=== PATIENT | male | born 2000 | race Caucasian/White ===

== ENCOUNTER 2024-03-12 23:38 | Emergency (ER) | payer SELFPAY ==
--- NOTE | ~2024-03-12 | CT_ITS ---
EXAMINATION: CT HEAD WITHOUT CONTRAST CLINICAL INFORMATION: Headache. COMPARISON: None available. TECHNIQUE: Contiguous axial imaging was performed from the skull base to vertex without intravenous administration of contrast. This CT examination was performed using dose optimization techniques as appropriate, variously including the following: *Automated exposure control *Adjustment of mA and/or kV according to patient size (this includes techniques or standardized protocols for targeted exams where dose is matched to indication/reason for exam; i.e. extremities or head) *Use of iterative reconstruction technique DLP: 757 mGy-cm FINDINGS: No intracranial hemorrhage, tumors or acute infarcts identified. The ventricles and sulci are normal in size and configuration. No focal parenchymal lesions of the brain. Normal appearance of the orbits and globes. No extra cranial soft tissue inflammatory changes. No significant opacification of the visualized paranasal sinuses, mastoid air cells and middle ear cavities. CT/CT head/brain wo IV con IMPRESSION: Normal unenhanced CT of the head. Electronically signed by: Kvng Stewart MD 03/13/2024 02:03 AM EDT
[2024-03-12 23:45] VITALS: BP 129/82; PULSE 85; RESP 18; TEMP 36.9; O2SAT 97; BMI 40.7
[2024-03-13 00:15] LABS: Basophils Absolute Auto 0.1 X10*3/uL (0.0-0.2); Basophils Percent Auto 0.9 % (0-2); Eosinophils Absolute Auto 0.2 X10*3/uL (0.0-0.4); Eosinophils Percent Auto 2.4 % (0-4); Hematocrit 44.5 % (42.0-52.0); Hemoglobin 14.1 g/dl (14.0-18.0); Imm Gran Abs Auto 0.04 X10*3/uL (0.00-0.03); Imm Gran Pct Auto 0.5 % (0.0-0.4); Lymphocytes Absolute Auto 2.9 X10*3/uL (1.2-4.9); Lymphocytes Percent Auto 33.8 % (20-40); MANUAL DIFF FLAG NO; Mean Corpuscular HGB Conc 31.7 g/dl (31.0-36.0); Mean Corpuscular Volume 82.1 fL (80.0-98.0); Mean Platelet Volume 8.6 fL (9.4-12.4); Monocytes Absolute Auto 0.7 X10*3/uL (0.1-1.2); Monocytes Percent Auto 8.3 % (2-11); Neutrophils Absolute Auto 4.6 x10*3/uL (2.0-8.3); Neutrophils Percent Auto 54.1 % (45-73); Platelet Count 405 X10*3/uL (160-400); Red Blood Count 5.42 X10*6/uL (4.60-5.80); Red Cell Distribution Width 13.7 % (11.0-16.0); White Blood Count 8.5 X10*3/uL (4.8-10.8)
[2024-03-13 00:32] LABS: Alanine Aminotransferase 49 U/L (0-40); Albumin Level 4.4 g/dL (3.5-5.0); Alkaline Phosphatase 70 U/L (39-117); Anion Gap 15 (12-20); Aspartate Amino Transferase 24 U/L (5-37); Bilirubin Total 0.3 mg/dL (0.0-1.0); Blood Urea Nitrogen 10 mg/dL (9-16); Calcium 10.2 mg/dL (8.4-10.2); Carbon Dioxide 25 mmol/L (22-29); Chloride 107 mmol/L (96-108); Estimated Glomerular Filt Rate > 60; Glucose Random 222 mg/dL (60-115); Sodium 142 mmol/L (135-145); Total Protein 7.9 g/dL (6.5-8.0)
--- NOTE | 2024-03-13 00:37 | ED.HA ---
HPI - Headache General Chief Complaint: Headache Stated Complaint: Seizures, Migraines Time Seen by Provider: 03/13/24 00:22 Source: patient, family and budget clerk Mode of arrival: ambulatory Limitations: other (poor historians) History of Present Illness ED Provider: SALLY WILSON Narrative: 23 yo male here with mom both are very poor historians - they report a PMH of seizures, DM, developmental delay he has been here for 1 month after his caregiver whom mom left him with. He told mom he had a headache on top of his head and his head felt hot so she brought him in. He states it is 5/10. No nausea or vomiting but the lights hurt it. He notes he was at rest getting ready for bed. He had a normal day today. He is not on blood thinners. MD elicited complaint: headache Onset (ago): hour(s) (1) Onset description: gradually Location: other (dome) Severity: moderate Quality & Timing: aching Exacerbating factors: light Relieving factors: nothing Context: occurred at rest Associated symptoms: none Treatments prior to arrival: none Related Data Allergies Allergy/AdvReac Type Severity Reaction Status Date / Time Unable to Assess Allergy Verified 03/12/24 23:57 Review of Systems Review of Systems: Constitutional : No Fever, No Chills, No Fatigue ENT/Mouth : No sore throat, No Rhinorrhea Eyes: No Eye Pain, No Swelling, No Redness Cardiovascular : No Chest Pain, No SOB, No Dyspnea on Exertion Respiratory : No Cough, No Sputum Gastrointestinal : No Nausea, No Vomiting, No Diarrhea, No abdominal Pain Genitourinary : No Dysuria, No Urinary Frequency, No Hematuria, Musculoskeletal : No joint pain, No Myalgias, No Joint Swelling Skin : No Skin Lesions, No rash Neuro : No Weakness, No Numbness, No Dizziness, positive Headache All other systems reviewed and are negative [facility], [facility] Past Medical History Attestation statement: The following information was validated with the patient. Medical History Cognitive developmental delay Diabetes Seizures Social History Social History (Updated 03/13/24 @ 00:41 by Lashawn Camarena DO) Patient Tobacco Use Status: Never used Tobacco Smoked in Last 30 Days: No Use of substances other than those prescribed or required for medical reasons: No Advance Directives: No Advance Directives Information Provided: Yes Physical Exam Vital Signs: Vital Signs: Last Vital Signs Temp 98.4 F 03/12/24 23:45 Pulse 85 03/12/24 23:45 Resp 18 03/12/24 23:45 BP 129/82 03/12/24 23:45 Pulse Ox 97 03/12/24 23:45 O2 Del Method Room Air 03/12/24 23:45 BMI result Body Mass Index 40.7 Appearance: Alert. Oriented X3. No acute distress. Eyes: Pupils equal, round and reactive to light. ENT: Pharynx normal. Neck: Normal inspection. Neck supple. no meningeal signs CVS: Normal heart rate and rhythm. Pulses normal. Respiratory: No respiratory distress. Breath sounds normal. Abdomen: Soft and nontender. Skin: Skin warm and dry. Normal skin color. Normal skin turgor. Extremities: No lower extremity edema. No calf ttp Neuro: Oriented X 3. No motor deficit. No sensory deficit. Medications Administered Discontinued Medications Generic Name Dose Route Start Last Admin Trade Name Freq PRN Reason Stop Dose Admin Acetaminophen 650 mg 03/13/24 00:34 03/13/24 00:56 Acetaminophen 325 Mg Tablet PO 03/13/24 00:35 650 mg ONCE ONE Administration Medical Decision Making Medical Decision Making [facility] Narrative: 23 yo male PMH of seizures, DM, developmental delay here with 5/10 headache occuring at rest worse with light just started at this time not toxic no focal deficits at his baseline he and mom are terrible historians will obtain viral panel and given his reported complicated history that they both do not seem to know much about I am going to obtain imaging. PO tylenol ordered. Differential Diagnosis Differential Diagnoses: The differential diagnosis associated with the presentation includes headache, tension headache, viral syndrome Admission/Observation Consideration of admission/observation: Escalation of care including admission/observation considered feels better stable for DC leaving prior to CT scan result on head CT they will be called with abnormal result Lab Data [facility] Lab Attestation statement: I reviewed the patient's lab results. 03/13/24 00:09 03/13/24 00:09 Labs: Lab Results 03/13/24 03/13/24 Range/Units 00:09 00:48 WBC 8.5 (4.8-10.8) X10*3/uL RBC 5.42 (4.60-5.80) X10*6/uL Hgb 14.1 (14.0-18.0) g/dl Hct 44.5 (42.0-52.0) % MCV 82.1 (80.0-98.0) fL MCH 26.0 L (27.0-33.0) pg MCHC 31.7 (31.0-36.0) g/dl RDW 13.7 (11.0-16.0) % Plt Count 405 H (160-400) X10*3/uL MPV 8.6 L (9.4-12.4) fL Immature Gran % (Auto) 0.5 H (0.0-0.4) % Neut % (Auto) 54.1 (45-73) % Lymph % (Auto) 33.8 (20-40) % [place] % (Auto) 8.3 (2-11) % Eos % (Auto) 2.4 (0-4) % Baso % (Auto) 0.9 (0-2) % Lymph # (Auto) 2.9 (1.2-4.9) X10*3/uL [place] # (Auto) 0.7 (0.1-1.2) X10*3/uL Eos # (Auto) 0.2 (0.0-0.4) X10*3/uL Baso # (Auto) 0.1 (0.0-0.2) X10*3/uL Abs Immat Gran (auto) 0.04 H (0.00-0.03) X10*3/uL Absolute Neuts (auto) 4.6 (2.0-8.3) x10*3/uL Absolute Nucleated RBC 0.000 (0.0-0.012) X10*3/uL Nucleated RBC % (auto) 0.0 (0.0-0.2) /100WBC Sodium 142 (135-145) mmol/L Potassium 5.0 (3.3-5.1) mmol/L Chloride 107 (96-108) mmol/L Carbon Dioxide 25 (22-29) mmol/L Anion Gap 15 (12-20) BUN 10 (9-16) mg/dL Creatinine 0.78 (0.5-1.4) mg/dL Estim Creat Clear Calc 188.0 Estimated GFR > 60 Random Glucose 222 H (60-115) mg/dL Calcium 10.2 (8.4-10.2) mg/dL Total Bilirubin 0.3 (0.0-1.0) mg/dL AST 24 (5-37) U/L ALT 49 H (0-40) U/L Alkaline Phosphatase 70 (39-117) U/L Total Protein 7.9 (6.5-8.0) g/dL Albumin 4.4 (3.5-5.0) g/dL Influenza Type A (PCR) NEGATIVE (Negative) Influenza Type B (PCR) NEGATIVE (Negative) RSV RNA Qual (PCR) NEGATIVE (Negative) SARS-CoV-2 RNA (RT-PCR) NEGATIVE (Negative) Independent Interpretation I performed an independent interpretation of an: CT Scan (normal ) Radiology Impression Discussion of test interpretation with radiology: I have reviewed the radiologist's reading. Independent Historian Clinical information obtained from an independent historian. History obtained from or confirmed by: Parent Discharge Plan Discharge Clinical Impression: Tension headache Patient Disposition: Home, Self-Care Instructions: Acute Headache (ED) Additional Instructions: labs and COVID test negative CT head negative return for any worsening symptoms or concerns. you are leaving prior to CT head result we will call you if there is abnormality Print Language: Armenian
[2024-03-13] MEDS: Acetaminophen 325 MG TABLET 650 MG PO (00:56)
[2024-03-13 01:30] LABS: Influenza A PCR NEGATIVE (Negative); Influenza B PCR NEGATIVE (Negative); Resp Syncy Virus RNA Qual PCR NEGATIVE (Negative); SARS COV2 PCR INHOUSE NEGATIVE (Negative)
[2024-03-13 02:12] VITALS: BP 129/82; PULSE 85; RESP 18; TEMP 36.9; O2SAT 97
== END 2024-03-13 02:13 | disposition home or self-care (01) ==
PROVIDERS: Emergency Provider Emergency Medicine
DX: R51.9 Headache, unspecified (principal); E11.9 Type 2 diabetes mellitus without complications; Z03.818 Encounter for observation for suspected exposure to other biological agents ruled out; Z79.899 Other long term (current) drug therapy
CPT/HCPCS: 0241U; 36415; 70450; 80053; 85025; 99284

== ENCOUNTER 2024-06-09 09:26 | Outpatient (REF) | payer SELFPAY ==
[2024-06-09 11:13] LABS: MANUAL DIFF FLAG NO
[2024-06-09 11:16] LABS: Basophils Absolute Auto 0.1 X10*3/uL (0.0-0.2); Basophils Percent Auto 0.7 % (0-2); Eosinophils Absolute Auto 0.2 X10*3/uL (0.0-0.4); Eosinophils Percent Auto 2.2 % (0-4); Hematocrit 45.2 % (42.0-52.0); Hemoglobin 14.5 g/dl (14.0-18.0); Imm Gran Abs Auto 0.02 X10*3/uL (0.00-0.03); Imm Gran Pct Auto 0.2 % (0.0-0.4); Lymphocytes Absolute Auto 3.1 X10*3/uL (1.2-4.9); Lymphocytes Percent Auto 31.9 % (20-40); Mean Corpuscular HGB Conc 32.1 g/dl (31.0-36.0); Mean Corpuscular Hemoglobin 26.1 pg (27.0-33.0); Mean Corpuscular Volume 81.4 fL (80.0-98.0); Mean Platelet Volume 9.8 fL (9.4-12.4); Monocytes Absolute Auto 0.6 X10*3/uL (0.1-1.2); Neutrophils Absolute Auto 5.8 x10*3/uL (2.0-8.3); Platelet Count 423 X10*3/uL (160-400); Red Blood Count 5.55 X10*6/uL (4.60-5.80); Red Cell Distribution Width 13.2 % (11.0-16.0); White Blood Count 9.8 X10*3/uL (4.8-10.8)
[2024-06-09 11:35] LABS: Alanine Aminotransferase 23 U/L (0-40); Albumin Level 4.5 g/dL (3.5-5.0); Alkaline Phosphatase 64 U/L (39-117); Anion Gap 12 (12-20); Aspartate Amino Transferase 18 U/L (5-37); Bilirubin Total 0.3 mg/dL (0.0-1.0); Blood Urea Nitrogen 9 mg/dL (9-16); Calcium 9.8 mg/dL (8.4-10.2); Carbon Dioxide 25 mmol/L (22-29); Chloride 106 mmol/L (96-108); Estimated Glomerular Filt Rate > 60; Glucose Random 279 mg/dL (60-115); Potassium 4.7 mmol/L (3.3-5.1); Sodium 138 mmol/L (135-145); Total Protein 7.9 g/dL (6.5-8.0)
[2024-06-09 11:49] LABS: TSH reflex Free T4 1.26 uIU/mL (0.32-4.0)
[2024-06-09 18:11] LABS: Creatinine Urine 97.63 mg/dL; Microalbum/Creatinine Ratio Ur 40.9 ug/mg cr (<30)
== END 2024-06-09 09:27 | disposition home or self-care (01) ==
LOC: HO.HHCL 09:26
PROVIDERS: Visit Provider Nurse Practitioner Family
DX: Z00.00 Encounter for general adult medical examination without abnormal findings (principal); E11.65 Type 2 diabetes mellitus with hyperglycemia; F29 Unspecified psychosis not due to a substance or known physiological condition
CPT/HCPCS: 36415; 80053; 82043; 82570; 84443; 85025

== ENCOUNTER 2024-06-09 13:22 | Outpatient (REF) | payer SELFPAY | END 2024-06-09 13:23 | disposition home or self-care (01) | LOC: HO.HHCL 13:22 | PROVIDERS: Visit Provider Nurse Practitioner Family | DX: Z13.89 Encounter for screening for other disorder (principal) ==

== ENCOUNTER 2024-06-21 10:36 | Emergency (ER) | payer MEDICAID, SELFPAY ==
--- NOTE | ~2024-06-21 | XR_ITS ---
CLINICAL HISTORY: cough, fevers Chest Radiographs, 2 views Comparison: None Findings: No cardiomegaly. Normal mediastinal contours. No pneumothorax. No opacity. No pleural effusion. Normal upper abdomen. No acute fracture. Impression: No acute findings. This document has been electronically signed by: Janae Joy MD on 06/21/2024 14:15:22
[2024-06-21 10:38] VITALS: BP 144/76; O2SAT 96
--- NOTE | 2024-06-21 10:42 | ECG_ITS ---
Test Reason : CHEST PAIN Blood Pressure : */* mmHG Vent. Rate : 102 BPM Atrial Rate : 102 BPM P-R Int : 162 ms QRS Dur : 92 ms QT Int : 336 ms P-R-T Axes : 37 14 20 degrees QTcB Int : 437 ms Sinus tachycardia Otherwise normal ECG No previous ECGs available Referred By: Generic ED Physician Electronically Signed By: AZAM GIRON
[2024-06-21 10:55] VITALS: BP 145/84; PULSE 103; RESP 20; TEMP 37; O2SAT 95; BMI 41.8
[2024-06-21 10:56] VITALS: BP 145/84; PULSE 95; RESP 20; TEMP 37.2; O2SAT 95
--- NOTE | 2024-06-21 11:14 | ED.GENADULT ---
HPI - General Adult General Chief complaint: Upper Respiratory Symptoms Stated complaint: COUGH W/CP PER EMS Time Seen by Provider: 06/21/24 11:13 Source: patient, family (mother), EMS, RN notes reviewed, old records reviewed and solution maker Mode of arrival: EMS Limitations: language barrier History of Present Illness ED Provider: Cyrus HPI narrative: Patient is a 24-year-old Malian-speaking male with history of T2 DM, seizures, hypothyroid, developmental delay presenting to the emergency department with mother who reports that since Sunday patient has had nasal congestion, cough, fever, vomited x 1 yesterday. Mother states POC glucose was high, patient states it was 219. Mother states patient was living with a director search until that person recently , and he has now been living with her for the past few months. MD complaint: cough, fever Onset (ago): day(s) Treatments prior to arrival: none Related Data Previous Rx's ?Medication ?Instructions ?Recorded acetaminophen 325 mg capsule 650 mg (2 x 325 mg) PO Q6H PRN 06/21/24 fever #20 caps benzonatate 100 mg capsule 100 mg PO TID PRN cough #20 caps 06/21/24 Allergies Allergy/AdvReac Type Severity Reaction Status Date / Time Unable to Assess Allergy Verified 06/21/24 10:58 Review of Systems Review of Systems: As per HPI Yes all other systems are reviewed and are negative Constitutional: Constitutional: Reports as per HPI [facility] Past Medical History Medical History Cognitive developmental delay Diabetes Seizures Social History Social History (System 06/12/24 @ 10:31 by Latia Lozano) Patient Tobacco Use Status: Never used Tobacco Advance Directives: No Advance Directives Information Provided: Yes Do you have a plan to hurt others: No Plan Physical Exam ED Vital Signs: Vital Signs - 24 hr 06/21/24 10:55 06/21/24 10:56 06/21/24 13:03 Temperature 98.6 F 98.9 F Pulse Rate 103 H 95 Respiratory Rate 20 20 Blood Pressure 145/84 H 145/84 H Pulse Oximetry 95 95 96 Oxygen Delivery Method Room Air Room Air Room Air BMI result Body Mass Index 41.8 Vital signs have been reviewed and appear to be correct. Blood pressure normal. Heart rate normal. Respiratory rate normal. Temperature normal. Oxygen saturation normal. Const General: cooperative, healthy appearing and no acute distress Orientation/consciousness: oriented to person, oriented to place, oriented to time and patient oriented x3 Limitations: no limitations HENMT Head: Yes normocephalic and Yes atraumatic Ears: external ears normal General nose exam: Normal external nose present Face and sinus: Yes face symmetric Mouth: oropharynx normal and moist mucous membranes Throat: Yes uvula midline Eyes Pupils: Equal, round and reactive pupils present Neck Neck: Yes normal visual inspection and Yes supple Resp Effort & Inspection: normal respiratory effort and able to speak in complete sentences Auscultation: clear to auscultation bilaterally Cardio Rate: regular rate Rhythm: regular rhythm Heart sounds: S1 normal heart sound present and S2 normal heart sound present GI Palpation (GI): Soft to palpation and nontender Auscultation: normoactive bowel sounds General: Yes no CVA tenderness Back/Spine/Pelvis Back: no CVA tenderness Skin General skin exam: elasticity normal and turgor normal Neuro General: oriented to person, oriented to place, oriented to time, patient oriented x3, moves all extremities, no focal motor deficits and CN's II-XI intact bilaterally Cranial nerves: Yes Equal, round and reactive pupils present Cognition (Neuro): normal cognition Extrem General: Yes full ROM, Yes no pedal edema and Yes no calf tenderness Psych Mental Status: mental status grossly normal Affect: normal affect Thought process: Normal thought process present Medical Decision Making Medical Decision Making MDM Narrative: Patient is a 24-year-old Malian-speaking male with history of T2 DM, seizures, hypothyroid, developmental delay presenting to the emergency department with mother who reports that since Sunday patient has had nasal congestion, cough, fever, vomited x 1 yesterday. On exam patient is awake, A+Ox3, VS WNL, afebrile, normal neurological exam without focal deficits, physical exam findings as above. Given reported symptoms and physical exam findings, initial differential includes but is not limited to viral illness, covid, flu, rsv, bronchitis, pneumonia, gastritis, electrolyte abnormality. Labs notable for leukocytosis, elevated glucose without anion gap, very slightly elevated beta hydroxy butyrate. Do not suspect DKA. X-ray chest notable for no evidence of pneumonia. My interpretation is in agreement with the radiologist's interpretation. Results discussed with patient and mother and all questions answered. Advised that symptoms likely due to viral illness which will resolve on its own with time. Follow-up with PCP. Return precautions discussed at bedside. Patient and mother verbalized understanding of and agreement with plan. In-person resistance welding machine operator was utilized for all interactions, assessments, and discussions. Differential Diagnosis Differential Diagnoses: The differential diagnosis associated with the presentation includes As per [facility] Admission/Observation Consideration of admission/observation: Escalation of care including admission/observation considered Patient would have been admitted to the hospital had their work up had any findings where hospital admission was appropriate and their clinical presentation warranted hospital admission. Lab Data [facility] Lab Attestation statement: I reviewed the patient's lab results. As per [facility] 06/21/24 13:10 06/21/24 13:10 Labs: Lab Results 06/21/24 06/21/24 Range/Units 11:20 13:10 WBC 15.0 H (4.8-10.8) X10*3/uL RBC 5.26 (4.60-5.80) X10*6/uL Hgb 13.7 L (14.0-18.0) g/dl Hct 41.5 L (42.0-52.0) % MCV 78.9 L (80.0-98.0) fL MCH 26.0 L (27.0-33.0) pg MCHC 33.0 (31.0-36.0) g/dl RDW 13.0 (11.0-16.0) % Plt Count 381 (160-400) X10*3/uL MPV 9.2 L (9.4-12.4) fL Immature Gran % (Auto) 0.4 (0.0-0.4) % Neut % (Auto) 72.0 (45-73) % Lymph % (Auto) 17.0 L (20-40) % [place] % (Auto) 7.9 (2-11) % Eos % (Auto) 2.3 (0-4) % Baso % (Auto) 0.4 (0-2) % Lymph # (Auto) 2.6 (1.2-4.9) X10*3/uL [place] # (Auto) 1.2 (0.1-1.2) X10*3/uL Eos # (Auto) 0.4 (0.0-0.4) X10*3/uL Baso # (Auto) 0.1 (0.0-0.2) X10*3/uL Abs Immat Gran (auto) 0.06 H (0.00-0.03) X10*3/uL Absolute Neuts (auto) 10.8 H (2.0-8.3) x10*3/uL Absolute Nucleated RBC 0.000 (0.0-0.012) X10*3/uL Nucleated RBC % (auto) 0.0 (0.0-0.2) /100WBC Sodium 137 (135-145) mmol/L Potassium 4.5 (3.3-5.1) mmol/L Chloride 105 (96-108) mmol/L Carbon Dioxide 25 (22-29) mmol/L Anion Gap 12 (12-20) BUN 12 (9-16) mg/dL Creatinine 0.82 (0.5-1.4) mg/dL Estim Creat Clear Calc 189.7 Estimated GFR > 60 Random Glucose 287 H (60-115) mg/dL Calcium 9.6 (8.4-10.2) mg/dL Total Bilirubin 0.4 (0.0-1.0) mg/dL AST 44 H (5-37) U/L ALT 77 H (0-40) U/L Alkaline Phosphatase 93 (39-117) U/L Total Protein 8.0 (6.5-8.0) g/dL Albumin 4.3 (3.5-5.0) g/dL Beta-Hydroxybutyrate 0.31 H (0.02-0.27) mmol/L Influenza Type A (PCR) NEGATIVE (Negative) Influenza Type B (PCR) NEGATIVE (Negative) RSV RNA Qual (PCR) NEGATIVE (Negative) SARS-CoV-2 RNA (RT-PCR) NEGATIVE (Negative) Independent Interpretation I performed an independent interpretation of an: Plain X-Ray Interpretation: No evidence of pneumonia on CXR Radiology Impression Discussion of test interpretation with radiology: I have reviewed the radiologist's reading. Radiologist Impression: Findings: No cardiomegaly. Normal mediastinal contours. No pneumothorax. No opacity. No pleural effusion. Normal upper abdomen. No acute fracture. Impression: No acute findings. Independent Historian Clinical information obtained from an independent historian. History obtained from or confirmed by: Parent External Record Review External record reviewed: Inpatient record, Office record and Outpatient record Prescription Management I considered prescription management with: Other Discharge Plan Discharge Clinical Impression: Upper respiratory infection, Viral infection Patient Disposition: Home, Self-Care Instructions: Upper Respiratory Infection (DC), Viral Syndrome (ED) Additional Instructions: You were evaluated in the emergency department today for shortness of breath and cough. Your Covid, flu, and RSV tests were all negative. Your chest x-ray did not show evidence of pneumonia. Your symptoms are likely related to a viral illness which will resolve on its own with time and rest. You should ensure adequate fluid intake, and can use Tylenol 650 mg or ibuprofen 600 mg every 6 hours as needed for fever or discomfort. You are being prescribed benzonatate which you can take every 8 hours as needed for cough. Please follow-up with your primary care provider this week. Return to the emergency department if you develop chest pain, worsening shortness of breath, difficulty swallowing, fever 100.4? F or greater or any other concerning symptoms. Prescriptions: New benzonatate 100 mg capsule 100 mg PO TID PRN (Reason: cough) Qty: 20 0RF acetaminophen 325 mg capsule 650 mg PO Q6H PRN (Reason: fever) Qty: 20 0RF Print Language: Malian
[2024-06-21 12:08] LABS: Influenza A PCR NEGATIVE (Negative); Influenza B PCR NEGATIVE (Negative); Resp Syncy Virus RNA Qual PCR NEGATIVE (Negative); SARS COV2 PCR INHOUSE NEGATIVE (Negative)
[2024-06-21 13:03] VITALS: PULSE 85; O2SAT 96
[2024-06-21 13:15] LABS: MANUAL DIFF FLAG NO
[2024-06-21 13:16] LABS: Basophils Absolute Auto 0.1 X10*3/uL (0.0-0.2); Basophils Percent Auto 0.4 % (0-2); Eosinophils Absolute Auto 0.4 X10*3/uL (0.0-0.4); Eosinophils Percent Auto 2.3 % (0-4); Hematocrit 41.5 % (42.0-52.0); Hemoglobin 13.7 g/dl (14.0-18.0); Imm Gran Abs Auto 0.06 X10*3/uL (0.00-0.03); Imm Gran Pct Auto 0.4 % (0.0-0.4); Lymphocytes Absolute Auto 2.6 X10*3/uL (1.2-4.9); Mean Corpuscular Volume 78.9 fL (80.0-98.0); Mean Platelet Volume 9.2 fL (9.4-12.4); Monocytes Absolute Auto 1.2 X10*3/uL (0.1-1.2); Monocytes Percent Auto 7.9 % (2-11); Neutrophils Absolute Auto 10.8 x10*3/uL (2.0-8.3); Platelet Count 381 X10*3/uL (160-400); Red Blood Count 5.26 X10*6/uL (4.60-5.80)
[2024-06-21 13:31] LABS: Alanine Aminotransferase 77 U/L (0-40); Albumin Level 4.3 g/dL (3.5-5.0); Alkaline Phosphatase 93 U/L (39-117); Anion Gap 12 (12-20); Aspartate Amino Transferase 44 U/L (5-37); Bilirubin Total 0.4 mg/dL (0.0-1.0); Blood Urea Nitrogen 12 mg/dL (9-16); Calcium 9.6 mg/dL (8.4-10.2); Carbon Dioxide 25 mmol/L (22-29); Chloride 105 mmol/L (96-108); Creatinine Clr Calc Pharmacy 189.7; Estimated Glomerular Filt Rate > 60; Glucose Random 287 mg/dL (60-115); Potassium 4.5 mmol/L (3.3-5.1); Sodium 137 mmol/L (135-145)
[2024-06-21 13:52] LABS: Beta-Hydroxybutyrate 0.31 mmol/L (0.02-0.27)
[2024-06-21 14:00] VITALS: BP 148/88; PULSE 99; RESP 18; O2SAT 99
[2024-06-21 15:16] VITALS: BP 148/88; PULSE 99; RESP 18; TEMP 37.1; O2SAT 99
== END 2024-06-21 15:37 | disposition home or self-care (01) ==
PROVIDERS: Registered Nurse Emergency; Emergency Provider Emergency Medicine
DX: J06.9 Acute upper respiratory infection, unspecified (principal); R05.9 Cough, unspecified; E11.9 Type 2 diabetes mellitus without complications; Z03.818 Encounter for observation for suspected exposure to other biological agents ruled out
CPT/HCPCS: 0241U; 36415; 71046; 80053; 82010; 85025; 93005; 99283; 99285

== ENCOUNTER → 2024-06-21 10:42 | Outpatient (BNV) | payer MEDICAID, SELFPAY | PROVIDERS: Emergency Provider Emergency Medicine; Visit Provider Internal Medicine | DX: R07.9 Chest pain, unspecified (principal) | CPT/HCPCS: 93010 ==

== ENCOUNTER → 2024-06-21 13:36 | Outpatient (BNV) | payer MEDICAID, SELFPAY | PROVIDERS: Emergency Provider Emergency Medicine; Visit Provider Radiology Diagnostic Radiology | DX: R05.9 Cough, unspecified (principal); R50.9 Fever, unspecified | CPT/HCPCS: 71046 ==

== ENCOUNTER 2024-08-28 09:05 | Outpatient (REF) | payer MEDICAID, SELFPAY ==
[2024-08-28 12:08] LABS: Cholesterol 194 mg/dL (<200); HDL Cholesterol 31 mg/dL (>40); Triglycerides 573 mg/dL (<150)
[2024-08-28 12:24] LABS: Amphetamine Screen Urine Not Detected (Not Detect); Barbiturates, Urine Not Detected (Not Detect); Benzodiazepines Screen Urine Not Detected (Not Detect); Buprenorphine Scr Not Detected (Not Detect); Cannabinoid Screen Urine Not Detected (Not Detect); Cocaine Screen Urine Not Detected (Not Detect); Fentanyl, urine Not Detected (Not Detect); Methadone Screen, Urine Not Detected (Not Detect); Opiate Screen Urine Not Detected (Not Detect); Oxycodone Screen Urine Not Detected (Not Detect); Phencyclidine Screen Urine Not Detected (Not Detect)
== END 2024-08-28 09:06 | disposition home or self-care (01) ==
LOC: HO.HHCL 09:05
PROVIDERS: Nurse Practitioner Family; Visit Provider Registered Nurse
DX: Z00.00 Encounter for general adult medical examination without abnormal findings (principal); E11.65 Type 2 diabetes mellitus with hyperglycemia; F41.9 Anxiety disorder, unspecified
CPT/HCPCS: 36415; 80061; 80307

== ENCOUNTER 2024-10-15 11:30 | Outpatient (REF) | payer MEDICAID, SELFPAY ==
--- OUTSIDE RECORDS SUMMARY | 2024-10-15 12:56 | XMS_ITS | Encounter Summary ---
Author Organization [facility] Address [address] [place] [address] Care Team Providers Care Wax Specialist Name Role Phone Jessica Emiliana HOTEL SERVICE SUPERVISOR Primary Care Provider [phone] Encounter Details Date Type Department Care Team (Late st Contact Info) Description 10/14/2024 Orders Only [facility] [address] [place] [address] Emiliana Lopez FNP [address] [place] [address] Social History Tobacco Use Types Packs/Day Years Used Date Smoking Tobacco: Never Smokeless Tobacco: Never Alcohol Use Standard Drinks/Week Comments Never 0 (1 standard drink = 0.6 oz pur e alcohol) Housing Stability Answer Date Recorded What is your housing situation today? I have ivan armando 06/25/[address] you li ve. Do you have problems with any of the following? None of the above 06/25/2024 Food Insecurity Answer Date Recorded Within the past 12 months, y ou worried that your food would run out before you got money to buy more: Never True 06/25/2024 Within the past 12 months,th e food you bought just didn't last and you didn't have enough money to get more: Never True Transportation Answer Date Recorded In the past 12 months, has l ack of transportation kept you from medical appts, meetings, work or from getting things needed for daily living? No 06/25/2024 Utilities Answer Date Recorded In the past 12 months, has t he electric, gas, oil or water company threatened to shut off services in your home? No 06/25/2024 Depression Answer Date Recorded Patient Health Questionnaire-2 Score 0 06/25/2024 Internet Access Answer Date Recorded Internet Access Q1 No 06/25/2024 Internet Access Q2 I do not want or need it 06/11 Sex and Gender Information Value Date Recorded Sex Assigned at Male 06/02/2024 10:06 AM EST Legal Sex Male 11:30 AM EST Gender Identity Male 06/02/2024 10:06 AM EST Sexual Orientation Straight 06/02/2024 10 :06 AM EST documented as of this encounter Plan of Treatment Upcoming Encounters Date Type Department Care Team (Late st Contact Info) Description 10/23/2024 11:00 AM EDT Medication Management [facility] [address] [place] [address] Ting Lancaster, PharmD [address] [place] [address] 12/02/2024 3:15 PM EDT Office Visit [facility] [address] [place] [address] La Thomas, OD [address] [place] [address] documented as of this encounter Visit Diagnoses Not on filedocumented in this encounter Care Teams Wax Specialist Relationship Specialty Start Date End Date Emiliana Lopez FNP [address] [place] [address] PCP - General Family Medicine 06/06/24 documented as of this encounter
--- OUTSIDE RECORDS SUMMARY | 2024-10-15 12:56 | XMS_ITS | Encounter Summary ---
Author Organization [employer] Address [address] [facility] [address] [place] [address] Care Team Providers Care Interface Designer Name Role Phone Emiliana Lopez Primary Care Provider [phone] Reason for Referral * Consultation (Routine) - Pending Review Specialty Diagnoses / Procedures Referred By Tito garcia Referred To Contact Cardiology Diagnoses Chest pain, unspecified type Emiliana Lopez FNP [address] [place] [address] Phone: tel: fax: Referral ID Status Reason Start Date Expiration Date Visits Requested Visits Authorized [id number] Pending Review Specialty Services Required 10/15/2024 10/15/2025 1 1 * Consultation (Routine) - Authorized Specialty Diagnoses / Procedures Referred By Tito garcia Referred To Contact Nutrition Diagnoses BMI 40.0-44.9, adult (CMS/HCC) Emiliana Lopez FNP [address] [place] [address] Phone: tel: fax: Referral ID Status Reason Start Date Expiration Date Visits Requested Visits Authorized [id number] Authorized Specialty Services Required 10/15/2024 10/15/2025 1 1 Encounter Details Date Type Department Care Team (Late st Contact Info) Description 10/15/2024 10:30 AM EDT Office Visit [facility] [address] [place] [address] Emiliana Lopez FNP [address] [place] [address] Type 2 diabetes mellitus with hyperglycemia, without long-term current use of insulin ([facility]) (Primary Dx); Chest pain, unspecified type; Encounter for immunization; BMI 40.0-44.9, adult (CMS/HCC) Social History Tobacco Use Types Packs/Day Years Used Date Smoking Tobacco: Never Passive Smoke Exposure: Never Smokeless Tobacco: Never Tobacco Cessation:Counseling Given: Not Answered Alcohol Use Standard Drinks/Week Comments Never 0 (1 standard drink = 0.6 oz pur e alcohol) Housing Stability Answer Date Recorded What is your housing situation today? I have ivan prabha 06/25/[address] you li [...] AM EST documented as of this encounter Last Filed Vital Signs Vital Sign Reading Time Taken Comments Blood Pressure 134/85 10/15/2024 10:45 AM EDT Pulse 78 10/15/2024 10:45 AM EDT Temperature 36.4 ??C (97.5 ??F) 10/15/2024 10:45 AM E DT Respiratory Rate 20 10/15/2024 10:45 AM EDT Oxygen Saturation 98% 10/15/2024 10:45 AM EDT Inhaled Oxygen Concentration - - Weight 132 kg (291 lb 4 oz) 10/15/2024 10:45 AM EDT Height 180.5 cm (5' 11.06 ) 10/15/2024 10:45 AM EDT Body Mass Index 40.55 10/15/2024 10:45 AM EDT documented in this encounter Plan of Treatment Upcoming Encounters Date Type Department Care Team (Late st Contact Info) Description 10/23/2024 11:00 AM EDT Medication Management [facility] [address] [place] [address] Ting Lancaster, PharmD [address] [place] [address] 12/02/2024 3:15 PM EDT Office Visit [facility] [address] [place] [address] Tarka, La, OD [address] [place] [address] Scheduled Orders Name Type Priority Associated Diagnoses Orde r Schedule Lipid Panel, Standard Lab Routine Type 2 diabetes mellitus with hyperglycemia, without long-term current use of insulin ([facility]) Expected: 04/16/2025 (Approximate), Expires: 10/14/2025 TSH Lab Routine Type 2 diabetes mellitus with hyperglycemia, without long-term current use of insulin ([facility]) Expected: 10/15/2024 (Approximate), Expires: 10/14/2025 Scheduled Referrals Name Type Priority Associated Diagnoses Orde r Schedule Referral to Nutrition Services, Internal Outpatient Referral Routine BMI 40.0-44.9, adult ([facility]) Expected: 10/15/2024 (Approximate), Expires: 10/14/2025 Referral to Cardiology Outpatient Referral Routine Chest pain, unspecified type Expected: 10/15/2024 (Approximate), Expires: 10/15/2025 documented as of this encounter Procedures Procedure Name Priority Date/Time Associated Diagnosis Comments POCT GLYCATED HEMOGLOBIN, TOTAL Routine 10/15/2024 10:48 AM EDT Type 2 diabetes mellitus with hyperglycemia, without long-term current use of insulin ([facility]) POCT GLUCOSE Routine 10/15/2024 10:47 AM EDT Type 2 diabetes mellitus with hyperglycemia, without long-term current use of insulin ([facility]) documented in this encounter Results * (ABNORMAL) POCT HGB A1C (10/15/2024 10:48 AM EDT) Hemoglobin A1C 9.4(A) 4.0 - 6.0 % QC Media Lot # [id number] Lot# Expiration Date Blood 10/15/2024 10:4 8 AM EDT Emiliana IRVIN POINT OF CARE TEST ENTER/EDIT ORDERABLES Final Result * (ABNORMAL) POCT Glucose (10/15/2024 10:47 AM EDT) Glucose Blood, POC 227(A) 60 - 200 mg/dL QC Media Lot # [id number] Lot# Expiration Date Blood Capillary blood specimen / Unknown 10/15/2024 10:47 AM EDT Emiliana IRVIN POINT OF CARE TEST ENTER/EDIT ORDERABLES Final Result documented in this encounter Visit Diagnoses Diagnosis Type 2 diabetes mellitus with hyperglycemia, without long-term current use of insulin ([facility])- Primary Chest pain, unspecified type Encounter for immunization BMI 40.0-44.9, adult ([facility]) documented in this encounter Care Teams Interface Designer Relationship Specialty Start Date End Date Emiliana Lopez FNP [address] [place] [address] PCP - General Family Medicine 06/06/24 documented as of this encounter
--- OUTSIDE RECORDS SUMMARY | 2024-10-15 12:56 | XMS_ITS ---
Author Organization [employer] Address [address] [facility] [address]t [place] [address] Care Team Providers Care Piece Hand Name Role Phone Emiliana Lopez PUBLIC RELATIONS PROFESSIONAL Primary Care Provider [phone] [phone] Complex Status:Enrolled (Active) Start date:08/28/2024 Enrollment date:08/28/2024 Overview C3 Escalation- Please see forwarded email for patient information. Please respond to email chain with updates within 24 hours. Also received PCP referral- Patient with active schizophrenia, needs VNA for medication admnistration. It has been difficult to get an agency. Mum is finding it difficult to provide adequate care Case Team Name Relationship Phone Larisa Duque (Responsible Staff) [phone] Continued Care and Services Coordination
--- OUTSIDE RECORDS SUMMARY | 2024-10-15 12:56 | XMS_ITS | Encounter Summary ---
Author Organization [employer] Address [address] [facility] [address] [facility] [address] [place] [address] Care Team Providers Care Fitness/Wellness Director Name Role Phone Emiliana Lopez DIRECTOR GOVERNMENT Primary Care Provider [phone] Encounter Details Date Type Department Care Team (Late st Contact Info) Description 10/08/2024 Telephone [facility] [address] [place] [address] Gail Donohue, ArleneD [address] [place] [address] Social History Tobacco Use Types Packs/Day Years [...] AM EST documented as of this encounter Miscellaneous Notes * Telephone Encounter - Gail Donohue PharmD - 10/08/2024 4:47 PM EDT Valeri, patient was seen in [facility] clinic for a follow up visit. During the visit, patient endorsed experiencing chest pain and associated headaches about 1 time per week. Patient denied symptoms during today's visit, and requested an appointment to be made with PCP for this ongoing concern (patient does not currently have a follow up appointment with PCP scheduled at this time). Please reach out to patient for further evaluation and next steps. Thank you! documented in this encounter Plan of Treatment Upcoming Encounters Date Type Department Care Team (Late st Contact Info) Description 10/23/2024 11:00 AM EDT Medication Management [facility] [address] [place] [address] Ting Lancaster PharmD [address] [place] [address] 12/02/2024 3:15 PM EDT Office Visit [facility] [address] [place] [address] La Thomas, OD [address] [place] [address] documented as of this encounter Visit Diagnoses Not on filedocumented in this encounter Care Teams Fitness/Wellness Director Relationship Specialty Start Date End Date Emiliana Lopez FNP [address] [place] [address] PCP - General Family Medicine 06/06/24 documented as of this encounter
--- OUTSIDE RECORDS SUMMARY | 2024-10-15 12:56 | XMS_ITS | Encounter Summary ---
Author Organization [employer] Address [address] [address] [place] [address] Care Team Providers Care Protective Signal Installer Helper Name Role Phone Emiliana Lopez OVEN HEATER HELPER Primary Care Provider Encounter Details Date Type Department Care Team (Late st Contact Info) Description 10/15/2024 Telephone [facility] [address] [place] [address] Emiliana Lopez FNP [address] [place] [address] Social History Tobacco Use Types Packs/Day Years Used Date Smoking Tobacco: Never Passive Smoke Exposure: Never Smokeless Tobacco: Never Alcohol Use Standard [...] encounter Miscellaneous Notes * Telephone Encounter - Geno Hernandes RN - 10/15/2024 10:28 AM EDT T/C to [facility] per pcp request. Female reports pt will be receiving VNA from their office and theycompleted an admission last week. States pt should expect a call from [facility] re: frequency of visits.PCP updated. documented in this encounter Plan of Treatment Upcoming Encounters Date Type Department Care Team (Late st Contact Info) Description 10/23/2024 11:00 AM EDT Medication Management [facility] [address] [place] [address] Ting Lancaster, ArleneD [address] [place] [address] 12/02/2024 3:15 PM EDT Office Visit [facility] [address] [place] [address] La Thomas, OD [address] [place] [address] documented as of this encounter Visit Diagnoses Not on filedocumented in this encounter Care Teams Protective Signal Installer Helper Relationship Specialty Start Date End Date Emiliana Lopez FNP [address] [place] [address] PCP - General Family Medicine 06/06/24 documented as of this encounter
--- OUTSIDE RECORDS SUMMARY | 2024-10-15 12:56 | XMS_ITS | Encounter Summary ---
Author Organization [employer] Address [address] [facility] [address] [place] [address] Care Team Providers Care Traveling Representative Name Role Phone Emiliana Lopez SOCKET WELDER HELPER Primary Care Provider [phone] Encounter Details Date Type Department Care Team (Latest Contact Info) Description 10/13/2024 Travel Social History Tobacco Use Types Packs/Day Years [...] Description 10/23/2024 11:00 AM EDT Medication Management [facility] [address] [place] [address] Ting Lancaster, Renu [address] [place] [address] 12/02/2024 3:15 PM EDT Office Visit [facility] [address] [place], [place] [id number] La Thomas, OD [address] [place] [address] documented as of this encounter Visit Diagnoses Not on filedocumented in this encounter Care Teams Traveling Representative Relationship Specialty Start Date End Date Emiliana Lopez FNP [address] [place] [address] PCP - General Family Medicine 06/06/24 documented as of this encounter
--- OUTSIDE RECORDS SUMMARY | 2024-10-15 12:56 | XMS_ITS | Encounter Summary ---
Author Organization [employer] Address [address] [place] [address] Care Team Providers Care Credit And Collection Manager Name Role Phone Emiliana Lopez AUTO BODY DETAILER Primary Care Provider [phone] Encounter Details Date Type Department Care Team (Latest Contact Info) Description 10/15/2024 Travel Social History Tobacco Use Types Packs/Day [...] Description 10/23/2024 11:00 AM EDT Medication Management [facility] [address] [place] [address] Ting Lancaster PharmD [address] [place] [address] 12/02/2024 3:15 PM EDT Office Visit [facility] [address] [place] [address] La Thomas, OD [address] [place] [address] documented as of this encounter Visit Diagnoses Not on filedocumented in this encounter Care Teams Credit And Collection Manager Relationship Specialty Start Date End Date Emiliana Lopez FNP [address] [place] [address] PCP - General Family Medicine 06/06/24 documented as of this encounter
--- OUTSIDE RECORDS SUMMARY | 2024-10-15 12:56 | XMS_ITS ---
Author Organization [employer] Address [address] [facility] [address] [place] [address] Care Team Providers Care Shortage Worker Name Role Phone Emiliana Lopez HEATER HELPER FORGE Primary Care Provider [phone] CM Complex Status:Outreach In Progress (Enrolling) Start date:08/28/2024 Enrollment reason:C3 Manual Referral Overview C3 Escalation- Please see forwarded email for patient information. Please respond to email chain with updates within 24 hours. Also received PCP referral- Patient with active schizophrenia, needs VNA for medication admnistration. It has been difficult to get an agency. Mum is finding it difficult to provide adequate care Case Team Name Relationship Phone Emanuel Garcia RN Registered Nurse(Responsible St aff) [phone] Continued Care and Services Coordination
--- OUTSIDE RECORDS SUMMARY | 2024-10-15 12:56 | XMS_ITS | Clinical Summary ---
Author Organization [employer] Address [address] [facility] [address] [place] [address] Care Team Providers Care Housecalls Nurse Name Role Phone Emiliana Lopez CAN CARRIER Primary Care Provider [phone] Allergies No known active allergies Medications * This document contains information received from the source organization and may not represent a complete record from that organization. Blood Pressure Monitoring (Blood Pressure Cuff) misc 1 Units Once per day. 1 each 06/06/20 24 Active Alcohol Swabs 70 % pads Use to test blood sugar twice daily before breakfast and at bedtime 100 each 1 06/06/20 24 Active Blood Glucose Monitoring Suppl (FreeStyle Siloam Lite) w/Device kit Use to test blood sugar twice daily before breakfast and at bedtime 1 kit 06/06/20 24 Active metFORMIN (Glucophage) 1000 MG tabletIndicati ons:Type 2 diabetes mellitus with hyperglycemia, without long-term current use of insulin (CMS/HCC) Take 1 tablet (1,000 mg) by mouth with breakfast and with evening meal. 90 tablet 3 07/07/19 25 Active pen needle 32G x 4 mm misc Use as instructed 100 each 12 07/11/19 25 026 Active FREESTYLE LITE test strip Use to test blood sugar 3 times daily 100 each 07/11/19 25 026 Active glimepiride (Amaryl) 4 MG tabletIndicati ons:Type 2 diabetes mellitus with hyperglycemia, without long-term current use of insulin (CMS/HCC) Take 1 tablet (4 mg) by mouth before breakfast. 90 tablet 1 08/08/19 25 Active levothyroxine (Synthroid, Levoxyl) 25 MCG tablet Take 1 tablet (25 mcg) by mouth before breakfast. 30 tablet 3 08/12/19 25 Active TRUEplus Lancets 33G miscIndication s:Type 2 diabetes mellitus with hyperglycemia, without long-term current use of insulin (CMS/HCC) USE DIRECTED TO CHECK BLOOD SUGAR TWICE DAILY BEFORE BREAKFAST AND BEDTIME 100 each 3 09/25/19 25 Active busPIRone (Buspar) 5 MG tabletIndicati ons:Anxiety Take 1 tablet (5 mg) by mouth 2 times daily. 60 tablet 1 09/24/19 25 025 Active QUEtiapine (SEROquel) 25 MG tabletIndicati ons:Psychosis, unspecified psychosis type (CMS/HCC) Take 1 tablet (25 mg) by mouth at bedtime. 30 tablet 1 09/24/19 25 025 Active atorvastatin (Lipitor) 20 MG tablet Take 1 tablet (20 mg) by mouth Once per day. 30 tablet 11 10/16/19 25 026 Active Dulaglutide (Trulicity) 3 MG/0.5ML solution auto-injector Inject 0.5 mL under the skin 1 (one) time per week. 2 mL 1 10/16/19 25 Active Omeprazole 20 MG tablet delayed-releas e Take 1 tablet (20 mg) by mouth Once per day. 30 tablet 2 10/16/19 25 Active calcium carbonate (Tums) 500 MG chewable tablet Chew 1 tablet (500 mg) if needed in the morning and at bedtime for indigestion or heartburn for up to 14 days. 28 tablet 10/16/19 25 025 Active Lancets misc Use to test blood sugar twice daily before breakfast and at bedtime 100 each 1 06/06/20 24 025 Discontinued Dulaglutide 1.5 MG/0.5ML solution auto-injectorI ndications:Typ e 2 diabetes mellitus with hyperglycemia, without long-term current use of insulin (CMS/HCC) Inject 1.5 mg under the skin 1 (one) time per week for 28 days. 2 mL 1 08/08/19 25 025 Discontinued(R eorder (will not trigger notification to Pharmacy)) QUEtiapine (SEROquel) 25 MG tabletIndicati ons:Psychosis, unspecified psychosis type (CMS/HCC) Take 1 tablet (25 mg) by mouth at bedtime. 30 tablet 1 08/26/19 25 025 Discontinued(R eorder (will not trigger notification to Pharmacy)) busPIRone (Buspar) 5 MG tabletIndicati ons:Anxiety Take 1 tablet (5 mg) by mouth 2 times daily. 60 tablet 1 08/26/19 25 025 Discontinued(R eorder (will not trigger notification to Pharmacy)) Dulaglutide 1.5 MG/0.5ML solution auto-injectorI ndications:Typ e 2 diabetes mellitus with hyperglycemia, without long-term current use of insulin ([facility]) Inject 1.5 mg under the skin 1 (one) time per week for 28 days. 2 mL 1 10/04/19 025 Discontinued(O ther) Active Problems Problem Noted Date Diagnosed Date BMI 40.0-44.9, adult 09/02/2024 Dietary counseling 09/02/2024 Exercise counseling 09/02/2024 Anxiety 08/25/2024 Adult wellness visit 06/10/2024 Insomnia due to mental condition 06/10/2024 Seizures 06/06/2024 Type 2 diabetes mellitus, wi thout long-term current use of insulin 06/06/2024 Assessment & Plan (06/10/2024 5:35 PM EST): Plan Continue to take your medications as prescribed Check your blood sugar twice daily before breakfast and bedtime, record your readings and bring with you to your next visit Lab order Dietary and exercise counseling Psychotic disorder 06/06/2024 Assessment & Plan (06/09/2024 9:45 AM EST): During IBH Consult Jake presenting with Altered sensory perception, Unusual thoughts, Flat affect, Trouble processing and with decision making, Difficulty with social interactions, Difficulty with ADLs, and Other: visual hallucinations and lack of insight. ; for a period of 18+ mo, for most or all symptoms in the context of recent move and untreated mental health. Jake was unable to perform intervention today due to lack of insight of services. His mom was present during appointment and provided information requested. Hx of psychosis disorder and psychiatry services when pt lived in [place]. Family moved to [place] in December 2023. Pt is not med compliant, mom requested Snf Visits to assist with medication concerns. Hx of aggression, paranoia and visual hallucinations. Pt has medical conditions including seizures and tyroids. Family hx of schizophrenia (brother). Housing situation is stable, mom lives with adult children and extended family. Pt has sleeping problems that aggravate sxs. Pt can go days without sleeping properly. Excessive use of screen time is also a barrier for services as pt does not want to participate in other activities. clinician engaged patient with active/reflective listening and provided emphatic approach. Reviewed and assessed for risk factors, current stressors and protective factors using open-ended questions. Provided information for [facility] crisis line. Pt will be refer out for psychiatry services and OP therapy center-base. PCP informed about [facility] request to assist pt with medication compliance. Encounters * This document contains information received from the source organization and may not represent a complete record from that organization. Date Type Department Care Team Description 10/15/2024 10:30 AM EDT Office Visit [facility] [address] [place] [phone] Emiliana Lopez FNP Type 2 diabetes mellitus with hyperglycemia, without long-term current use of insulin ([facility]) (Primary Dx); Chest pain, unspecified type; Encounter for immunization; BMI 40.0-44.9, adult ([facility]) 10/15/2024 Telephone [facility] [address] [place] [address] Emiliana Lopez FNP 10/15/2024 Travel 10/14/2024 Orders Only [facility] [address] [place] [address] Emiliana Lopez FNP 10/14/2024 Telephone [facility] [address] [place] [address] Emiliana Lopez FNP CHART PREP 10/13/2024 Travel 10/10/2024 Telephone [facility] [address] [place] [address] Emiliana Lopez FNP 10/08/2024 Telephone [facility] [address] [place] [phone] Gail Donohue, Renu 10/08/2024 Travel 10/03/2024 Orders Only [facility] [address] [place] [address] [place] [address] Hamida Malin, WALKING DRAGLINE OILER Type 2 diabetes mellitus with hyperglycemia, without long-term current use of insulin (CMS/[facility]) 10/03/2024 Refill [facility] [address] [facility] [facility] [place] [address] OkjaneoJackelinEmiliana, CAN CARRIER Type 2 diabetes mellitus with hyperglycemia, without long-term current use of insulin (CMS/[facility]) 10/03/2024 Refill [facility] [address] [facility] [place] [address] Hamida Malin, WALKING DRAGLINE OILER Type 2 diabetes mellitus with hyperglycemia, without long-term current use of insulin (CMS/[facility]) 10/02/2024 Patient Outreach [address] [address] [place] Emiliana, CAN CARRIER Care Coordination 09/23/2024 Patient Outreach [address] [address] [place] Emiliana, CAN CARRIER 09/23/[address] [address] [place] Emiliana, CAN CARRIER Type 2 diabetes mellitus with hyperglycemia, without long-term current use of insulin ([facility]) 09/16/[address] [address] OkjaneoJackelinEmiliana, CAN CARRIER 09/15/2024 Travel 09/12/2024 Patient Outreach [address] [address] [place] Emiliana, CAN CARRIER Care Coordination 09/12/2024 Patient Outreach [address] [address] [place], Emiliana, CAN CARRIER Care Coordination ([address] Larisa Duque telephone call outreach) 09/08/2024 Patient Outreach [address] [address] [place] Emiliana, CAN CARRIER 09/03/2024 Patient Outreach [address] [address] Pastor Lopeze, CAN CARRIER Care Coordination 09/02/2024 Patient Outreach [address] [address] Pastor Lopeze, CAN CARRIER Care Coordination (C3- Initial assessment/LVM) 08/28/2024 Patient Outreach [address] [address] Pastor Lopeze, CAN CARRIER Care Coordination 08/28/2024 Patient Outreach [address] [address] Pastor Lopeze, CAN CARRIER 08/28/2024 Patient Outreach [address] [address] Emiliana Lopez, CAN CARRIER 08/28/2024 Patient Outreach [address] [address] Pastor Lopeze, CAN CARRIER Care Coordination 08/28/2024 Patient Outreach [address] [address] Pastor Lopeze, CAN CARRIER Care Coordination (C3- chart review) 08/28/2024 Patient Outreach [address] [address] Emiliana Lopez, CAN CARRIER 08/27/2024 3:15 PM EDT Office Visit [address] [address] Emiliana Lopez, CAN CARRIER Type 2 diabetes mellitus with hyperglycemia, without long-term current use of insulin (CMS/[facility]) (Primary Dx); Dietary counseling; Exercise counseling; BMI 40.0-44.9, adult (CMS/HCC) 08/27/2024 Travel 08/22/2024 Population Health Risk Score [facility] () [address] [address] Provider, Population Health Generic 08/19/[address] [address] Emiliana Lopez, CAN CARRIER Call Back Request 08/12/[address] [address] Edel Pope [place] Chart Prep 08/11/2024 Orders Only [facility] [address] [place] [phone] Emiliana Lopez FNP 08/11/2024 Refill [facility] [address] [place] [address] Gail Donohue PharmD 08/11/2024 Travel 08/08/2024 1:00 PM EST Office Visit [facility] [address] [place] [address] Hamida Malin NP Type 2 diabetes mellitus with hyperglycemia, without long-term current use of insulin ([facility]) (Primary Dx); Elevated blood pressure reading in office without diagnosis of hypertension; Psychosis, unspecified psychosis type ([facility]) 08/08/2024 Telephone [facility] [address] [address] Hamida Malin NP Nurse Triage 08/04/[address] [address] Emiliana Lopez FNP Call Back Request 08/01/[address] [address] Emiliana Lopez FNP from Last 3 Months Immunizations Name Administration Dates Next Due Pneumococcal Conjugate PCV 20 10/15/2024 Tdap 10/15/2024 Family History Medical History Relation Name Comments Schizophrenia Brother Heart failure Maternal Grandmother Diabetes Mother Hyperlipidemia Mother Relation Name Status Comments Brother Maternal Grandmother Mother Social History Tobacco Use Types Packs/Day Years [...] Orientation Straight 06/02/2024 10 :06 AM EST Last Filed Vital Signs Vital Sign Reading [...] Mass Index 40.55 10/15/2024 10:45 AM EDT Plan of Treatment Upcoming Encounters Date Type Department Care Team (Late st Contact Info) Description 10/23/2024 11:00 AM EDT Medication Management [facility] [address] [place] [address] Ting Lancaster, PharmD [address] [place] [address] 12/02/2024 3:15 PM EDT Office Visit [facility] [address] [place] [address] La Thomas, OD [address] [place] [address] Health Maintenance Due Date Last Done Comments HIV Screening 2000 Diabetes: Foot Exam 2010 Eye Exam 2010 Family Planning (PISQ) 2015 HPV Vaccines (1 - Male 3-dos e series) 2015 Hepatitis C Screening 2018 Hepatitis B Vaccines (1 of 3 - 19+ 3-dose series) 2019 COVID-19 Vaccine (2023-2 5 season) 2024 Influenza Vaccine (#1) 2024 Diabetes: Hemoglobin A1C 01/15/2025 025, 08/27/2024, 06/06/2024 Alcohol/Substance Use Screening 06/06/2025 06/06/2024 Diabetes: Urine Protein Screening 06/09/2025 06/09/2024 Depression Screening 06/25/2025 06/25/2024, 06/25/2024 SDOH Screening 06/25/2025 06/25/2024 Lipid Panel 08/28/2025 08/28/2024 Tobacco Screening 10/15/2025 10/15/2024 DTaP/Tdap/Td Vaccines (2 - T d or Tdap) 10/15/2034 10/15/2024 Zoster Vaccines (1 of 2) 2050 RSV Patients and Patients Aged 60 years or older (1 - 1-dose 75+ series) 2075 Pneumococcal Vaccine: Pediatrics (0 to 5 Years) and At-Risk Patients (6 to 49) Years) Completed 10/15/2024 HIB Vaccines Aged Out No longer eligi ble based on patient's age to complete this topic Hepatitis A Vaccines Aged Out No long er eligible based on patient's age to complete this topic IPV Vaccines Aged Out No longer eligi ble based on patient's age to complete this topic Meningococcal Vaccine Aged Out No concepcion briana eligible based on patient's age to complete this topic RSV under 20 months Aged Out No longe r eligible based on patient's age to complete this topic Rotavirus Vaccines Aged Out No longer eligible based on patient's age to complete this topic Procedures Procedure Name Priority Date/Time Associated Diagnosis Comments POCT GLYCATED HEMOGLOBIN, TOTAL Routine 10/15/2024 10:48 AM EDT Type 2 diabetes mellitus with hyperglycemia, without long-term current use of insulin (CMS/HCC) POCT GLUCOSE Routine 10/15/2024 10:47 AM EDT Type 2 diabetes mellitus with hyperglycemia, without long-term current use of insulin (CMS/HCC) LIPID PANEL, STANDARD Routine 08/28/2024 9:13 AM EDT DRUG MONITOR, PANEL 1, SCREEN, URINE Routine 08/28/2024 9:06 AM EDT Anxiety POCT GLYCATED HEMOGLOBIN, TOTAL Routine 08/27/2024 3:35 PM EDT Type 2 diabetes mellitus with hyperglycemia, without long-term current use of insulin (CMS/HCC) POCT GLUCOSE Routine 08/27/2024 3:35 PM EDT Type 2 diabetes mellitus with hyperglycemia, without long-term current use of insulin (CMS/HCC) AMB REFERRAL TO NEUROLOGY Routine 08/21/2024 Seizures (CMS/HCC) POCT GLUCOSE Routine 08/11/2024 9:45 AM EST Type 2 diabetes mellitus with hyperglycemia, without long-term current use of insulin (CMS/HCC) POCT URINALYSIS DIPSTICK Routine 08/08/2024 2:08 PM EST Type 2 diabetes mellitus with hyperglycemia, without long-term current use of insulin (CMS/HCC) POCT GLUCOSE Routine 08/08/2024 12:40 PM EST Type 2 diabetes mellitus with hyperglycemia, without long-term current use of insulin (CMS/HCC) ALBUMIN, RANDOM URINE W/CREATININE Routine 06/09/2024 1:27 PM EST Adult wellness visit Type 2 diabetes mellitus with hyperglycemia, without long-term current use of insulin (CMS/HCC) from Last 3 Months or Most Recently Relevant to Health Maintenance Results * (ABNORMAL) POCT HGB A1C (10/15/2024 10:48 AM EDT) Only the most recent of2 resultswithin the time period is included. Hemoglobin A1C 9.4(A) 4.0 - 6.0 % QC Media Lot # [id number] Lot# Expiration Date , Blood 10/15/2024 10:4 8 AM EDT [employer] POINT OF CARE TEST ENTER/EDIT ORDERABLES Final Result * (ABNORMAL) POCT Glucose (10/15/2024 10:47 AM EDT) Only the most recent of4 resultswithin the time period is included. Glucose Blood, POC 227(A) 60 - 200 mg/dL QC Media Lot # [id number] Lot# Expiration Date Blood Capillary blood specimen / Unknown 10/15/2024 10:47 AM EDT [employer] POINT OF CARE TEST ENTER/EDIT ORDERABLES Final Result * (ABNORMAL) Lipid Panel, Standard (08/28/2024 9:13 AM EDT) Triglycerides 573(H) <150 mg/dL [facility] Comment:Slight Lipemia.Jamie able Triglyceride: less than 150 mg/dLBorderline High Triglyceride 150-199 mg/dLHigh Triglyceride: 200-499 mg/dLVery High Triglyceride: greater than or equal to 5OO mg/dL Cholesterol 194 <200 mg/dL [facility] Comment:Desirable Cholestero l: less than 200 mg/dLBorderline High Cholesterol: 200-239 mg/dLHigh Cholesterol: greater than 239 mg/dL LDL Cholesterol Calculated TNP <100 mg/dL [facility] Comment:Unable to calculate the LDL. The formula of Friedwald,Ornelas, and Francis is only valid if the triglycerides areless than 400 mg/dl. HDL Cholesterol 31(L) >40 mg/dL [facility] Comment:Desirable HDL: great er than 40 mg/dL Note: This HDL assay may give artificially low results in patients with liver disease. 08/28/2024 9:13 AM EDT 08/28/2024 11:19 AM EDT us Emilianajoao Pearcedave CAN CARRIER LAB BLOOD ORDERABLES Final Res ult [facility] [address] [place] [phone] [phone] * Drug Monitoring, Panel 1, Screen, Urine (08/28/2024 9:06 AM EDT) Opiate Screen Urine Not Detected Not Detect [facility] Comment:Opiate cut-off is 30 0 ng/mL.Positive results are unconfirmed and should not be used fornon-medical purposes. Barbiturates, Urine Not Detected Not Detect [facility] Comment:Barbiturate cut-off is 200 ng/mL.Positive results are unconfirmed and should not be used fornon-medical purposes. Phencyclidine Screen Urine Not Detected Not Detect [facility] Comment:Phencyclidine cut-of f is 25 ng/mL.Positive results are unconfirmed and should not be used fornon-medical purposes. Amphetamine Screen Urine Not Detected Not Detect [facility] Comment:Amphetamine cut-off is 1000 ng/mL.Positive results are unconfirmed and should not be used fornon-medical purposes. Benzodiazepines Screen Urine Not Detected Not Detect [facility] Comment:Benzodiazepine cut-o ff is 200 ng/mL.Positive results are unconfirmed and should not be used fornon-medical purposes. Cocaine Screen Urine Not Detected Not Detect [facility] Comment:Cocaine cut-off is 3 00 ng/mL.Positive results are unconfirmed and should not be used fornon-medical purposes. Cannabinoid Screen Urine Not Detected Not Detect [facility] Comment:Cannabinoid cut-off is 50 ng/mL.Positive results are unconfirmed and should not be used fornon-medical purposes. Methadone Screen, Urine Not Detected Not Detect ng/mL [facility] Comment:Methadone cut-off is 300 ng/mL.Positive results are unconfirmed and should not be used fornon-medical purposes. FENTANYL URINE Not Detected Not Detect [facility] Comment:Fentanyl cut-off is 1 ng/mL.Positive results are unconfirmed and should not be used fornon-medical purposes. Oxycodone Urine Screen Not Detected Not Detect ng/mL [facility] Comment:Oxycodone cut-off is 100 ng/mL.Positive results are unconfirmed and should not be used fornon-medical purposes. Buprenorphine Screen Not Detected Not Detect ng/mL [facility] Comment:Buprenorphine cut-of f is 5 ng/mL.Positive results are unconfirmed and should not be used fornon-medical purposes. Urine (Urine, Random) 08/28/2024 9:06 AM EDT 08/28/2024 12:07 PM EDT Geovany Brown HNP LAB URINE ORDERABLES Final Re sult [facility] [address] [place] [phone] * Referral to Neurology (08/21/2024) Emiliana Lopez CAN CARRIER OUTPATIENT REFERRAL ORDERABLES Final Result * (ABNORMAL) POCT Urinalysis (08/08/2024 2:08 PM EST) Color, UA Yellow Clarity, UA Clear Glucose, UA Many Comment:>=1000 mg/dL Bilirubin, UA Negative Ketones, UA Positive Comment:trace Spec Grav, UA 1.010 Blood, UA Negative Negative, None Detected pH, UA 5.5 Protein, UA Negative Urobilinogen, UA 0.2 Leukocytes, UA Negative Negative, Rare, Trace Nitrite, UA Negative Negative, None Detected QC Media Lot # [id number] Lot# Expiration Date Urine 08/08/2024 2:08 PM EST us Hamida Caim WALKING DRAGLINE OILER POINT OF CARE TEST ENTER/EDIT O RDERABLES Final Result * (ABNORMAL) Albumin, Random Urine W/Creatinine (06/09/2024 1:27 PM EST) Creatinine, Urine 97.63 mg/dL [facility] Microalbumin Urine 40.0 mg/L H [facility] Microalbum Creatinine Ratio Ur 40.9(H) <30 ug/mg cr [facility] Comment:Albumin/Creatinine R atio Reference Ranges: Normal: < 30 ug/mg creatinine Microalbuminuria: 30 - 300 ug/mg creatinineClinical Albuminuria: > 300 ug/mg creatinine Urine (Urine, Random) 06/09/2024 1:27 PM EST 06/09/2024 5:29 PM EST Emiliana RAMIREZP LAB URINE ORDERABLES Final Res ult Performing Organization Address City/State/[facility] Co de Phone Number [facility] [address] [place] [phone] from Last 3 Months or Most Recently Relevant to Health Maintenance Insurance [facility] C3 Care Teams Housecalls Nurse Relationship Specialty Start Date End Date Emiliana Lopez FNP [address] [place] [address] PCP - General Family Medicine 06/06/24
--- OUTSIDE RECORDS SUMMARY | 2024-10-15 12:56 | XMS_ITS | Encounter Summary ---
Author Organization [employer] Address [address] [place] [address] Care Team Providers Care Hypo Dipper Name Role Phone Emiliana Lopez TORPEDOMAN'S MATE Primary Care Provider [phone] Reason for Visit * Reason Onset Date Comments CHART PREP 10/14/2024 Encounter Details Date Type Department Care Team ([facility] st Contact Info) Description 10/14/2024 Telephone [facility] [address] [place] [address] Emiliana Lopez FNP [address] [place] [address] CHART PREP Social History Tobacco Use Types Packs/Day Years [...] encounter Miscellaneous Notes * Telephone Encounter - [facility] [place] - 10/14/2024 10:07 AM EDT Chart Prep Labs: done from 08/28/24 Images: not applicable Referrals: complete Neuro [facility] appt kept on 09/30/24 notes requested. Pt have a f/u on 12/31/24 at 1pm Vaccines due: PCV20, Tdap, and HPV Screenings: eye exam and foot exam Overdue care gaps: A1c, Glucose, FLORY-7, and Disability screen. documented in this encounter Plan of Treatment Upcoming Encounters Date Type Department Care Team (Late st Contact Info) Description 10/23/2024 11:00 AM EDT Medication Management [facility] [address] [place] [address] Ting Lancaster PharmD [address] [place] [address] 12/02/2024 3:15 PM EDT Office Visit [facility] OPTOMETRY [address] [place] [address] La Thomas, OD [address] [place] [address] documented as of this encounter Visit Diagnoses Not on filedocumented in this encounter Care Teams Hypo Dipper Relationship Specialty Start Date End Date Emiliana Lopez FNP [address] [place] [address] PCP - General Family Medicine 06/06/24 documented as of this encounter
--- OUTSIDE RECORDS SUMMARY | 2024-10-15 12:56 | XMS_ITS | Encounter Summary ---
Author Organization [employer] Address [address] [facility] 7t [place] [address] Care Team Providers Care Resident Care Director Name Role Phone Emiliana Lopez WIRELESS SALES MANAGER Primary Care Provider [phone] Reason for Visit * Reason Comments Care Coordination C3CM- Initial assess ment/LVM Encounter Details Date Type Department Care Team (Latest Contact Info) Description 09/02/2024 Patient Outreach [facility] [address] [place] [address] Emiliana Lopez FNP [address] [place] [address] Care Coordination (C3CM- Initial assessment/LVM) Social History Tobacco Use Types Packs/Day Years Used Date Smoking Tobacco: Never Smokeless Tobacco: Never Alcohol Use Standard Drinks/Week Comments Never 0 (1 standard drink = 0.6 oz pur e alcohol) Housing Stability Answer Date Recorded What is your housing situation today? I have ivanbelen armando 06/25/[address] you [...] t he electric, gas, oil or water [employer] threatened to shut off services in your [...] AM EST documented as of this encounter Progress Notes * Emanuel Garcia RN - 09/02/2024 1:59 PM EDT CM Emanuel Garcia RN, placed outbound call to patient for agreed upon assessment time. No answer at this time, left message requesting call back at [phone]. CHW will attempt contact with patient to reschedule missed initial assessment. documented in this encounter Plan of Treatment Upcoming Encounters Date Type Department Care Team (Late st Contact Info) Description 10/23/2024 11:00 AM EDT Medication Management [facility] [address] [place] [address] Ting Lancaster, ArleneD [address] [place] [address] 12/02/2024 3:15 PM EDT Office Visit [facility] [address] [place] [address] Tarka, La, OD [address] [place] [address] documented as of this encounter Visit Diagnoses Not on filedocumented in this encounter Care Teams Resident Care Director Relationship Specialty Start Date End Date Emiliana Lopez FNP [address] [place] [address] PCP - General Family Medicine 06/06/24 documented as of this encounter
--- OUTSIDE RECORDS SUMMARY | 2024-10-15 12:56 | XMS_ITS | Encounter Summary ---
Author Organization [employer] Address [address] [facility] [address] 7[address] [place] [address] Care Team Providers Care Saddle And Harness Maker Name Role Phone Emiliana Lopez METAL EXTRUSION SUPERVISOR Primary Care Provider [phone] Encounter Details Date Type Department Care Team (Late st Contact Info) Description 10/10/2024 Telephone [facility] [address] [place] [address] Emiliana Lopez FNP [address] [place] [address] Social History Tobacco Use Types Packs/Day Years [...] Telephone Encounter - Geno Hernandes RN - 10/10/2024 12:10 PM EDT Gail Donohue, ArleneD2 days ago VILMA Trammell, patient was seen in [facility] clinic for a follow up visit. During [...] further evaluation and next steps. Thank you! T/C to pt's Mom for status check via [employer] Manager Scheduling Trip #[id number]. Mom confirms that pt has been having intermittent chest pain with sob since his return from [place]. Reports that symptoms occur just sometimes . States that pt has high cholesterol. Denies symptoms now. Reports pt is currentlyat the dentist for a root canal. Mom agrees to office visit with pcp 10/15/24. Reviewed ED precautions and WIC availability. Mom verbalized understanding. documented in this encounter Plan of Treatment Upcoming Encounters Date Type Department Care Team (Late st Contact Info) Description 10/23/2024 11:00 AM EDT Medication Management [facility] [address] [place] [address] Ting Lancaster, ArleneD [address] [place] [address] 12/02/2024 3:15 PM EDT Office Visit [facility] [address] [place] [address] La Thomas, OD [address] [place] [address] documented as of this encounter Visit Diagnoses Not on filedocumented in this encounter Care Teams Saddle And Harness Maker Relationship Specialty Start Date End Date Emiliana Lopez FNP [address] [place] [address] PCP - General Family Medicine 06/06/24 documented as of this encounter
--- OUTSIDE RECORDS SUMMARY | 2024-10-15 12:56 | XMS_ITS | Encounter Summary ---
Author Organization [employer] Address [address] [facility] [address] 7[address] [place] [address] Care Team Providers Care Materials Manager Name Role Phone Jessica Emiliana INTER COM INSTALLER Primary Care Provider [phone] Encounter Details Date Type Department Care Team (Late st Contact Info) Description 10/03/2024 Refill [facility] [address] [place] [address] Emiliana Lopez FNP [address] [place] [address] Type 2 diabetes mellitus with hyperglycemia, without long-term current use of insulin ([facility]) Social History Tobacco Use Types Packs/Day Years [...] Description 10/23/2024 11:00 AM EDT Medication Management [facility] [address] [place] [address] Ting Lancaster, PharmD [address] [place] [address] 12/02/2024 3:15 PM EDT Office Visit [facility] [address] [place] [address] La Thomas, OD [address] [place] [address] documented as of this encounter Visit Diagnoses Diagnosis Type 2 diabetes mellitus with hyperglycemia, without long-term current use of insulin ([facility]) documented in this encounter Care Teams Materials Manager Relationship Specialty Start Date End Date Emiliana Lopez FNP [address] [place] [address] PCP - General Family Medicine 06/06/24 documented as of this encounter
[2024-10-15 14:23] LABS: Cholesterol 186 mg/dL (<200); HDL Cholesterol 29 mg/dL (>40); Triglycerides 657 mg/dL (<150)
== END 2024-10-15 11:31 | disposition home or self-care (01) ==
LOC: HO.HHCL 11:30
PROVIDERS: Visit Provider Nurse Practitioner Family
DX: E11.65 Type 2 diabetes mellitus with hyperglycemia (principal)
CPT/HCPCS: 36415; 80061; 84443

== ENCOUNTER 2024-12-31 13:12 | Outpatient (AMB) | payer MEDICAID, SELFPAY ==
--- OUTSIDE RECORDS SUMMARY | 2024-12-31 13:37 | XMS_ITS | Encounter Summary ---
Author Organization [employer] Address [address] [facility] [address] 7[address] [place] [address] Care Team Providers Care Assistant Executive Housekeeper Name Role Phone Jackelin Lopezupe MOLD WASHER Primary Care Provider [phone] Encounter Details Date Type Department Care Team (Late st Contact Info) Description 10/03/[address] [facility] [address] [place] [address] Emiliana Lopez FNP [address] [place] [address] Type 2 diabetes mellitus with hyperglycemia, without long-term current use of insulin ([facility]) Social History Tobacco Use Types [...] Care Team (Late st Contact Info) Description 01/05/2025 11:30 AM EDT Medication Management [facility] [address] [place] [address] Ting Lancaster, PharmD [address] [place] [address] documented as of this encounter Visit Diagnoses Diagnosis Type 2 diabetes mellitus with hyperglycemia, without long-term current use of insulin ([facility]) documented in this encounter Care Teams Assistant Executive Housekeeper Relationship Specialty Start Date End Date Emiliana Lopez FNP [address] [place] [address] PCP - General Family Medicine 06/06/24 [facility] 11/10/24 documented as of this encounter
--- NOTE | 2024-12-31 13:52 | A.OFFVIS_ITS ---
Intake Visit Reasons: 3 mnts Sz Allergies No Known Allergies Allergy (Verified 12/30/24 07:46) HPI Comments Details: 24 years old man from [place] who did not speak [place].? He carried diagnosis of psychotic disorder and seizure disorder. Semiology of seizures was not known except that his mother stated that he was treated for seizures in [place]. An EEG in August of 2024 revealed right frontal slowing. A head CT in 2023 revealed a small area of hypodensity close to ventricle. This consultation was done with help of an transportation sales consultant as his mother was with him who had multiple questions and she did not speak [place]. He did not have any more episodes or seizures. [facility] Medical History (Updated 12/31/24 @ 14:07 by Gustavo Guerra MD) Chronic static encephalopathy Cognitive developmental delay Diabetes Seizures Social History (System 06/12/24 @ 10:31 by Latia Lozano) Patient Tobacco Use Status: Never used Tobacco Review of Systems Const Details: Constitutional:?No fever, chills, fatigue, weight loss, or night sweats. HEENT:?No headache, vision changes, hearing loss, nasal congestion, sore throat. Neurological:?No dizziness, syncope, seizures, numbness, tingling, weakness, tremors, memory loss. Psychiatric:?No anxiety, depression, mood swings, sleep disturbance, or hallucinations. Endocrine:?No heat/cold intolerance, polydipsia, polyuria, or hair/skin changes. Hematologic/Lymphatic:?No easy bruising, bleeding, or lymphadenopathy. Integumentary (Skin):?No rash, lesions, itching, or color changes. ? Physical Exam Neuro Other: Mental Status: Alert and oriented to person, place, and time. Normal attention. Normal spontaneous speech, fluency, and comprehension. No obvious issues with mood and memory. Affect is appropriate. Cranial Nerves: CN II: Visual isaac full to confrontation, visual acuity intact. CN III, IV, : Pupils equal, round, reactive to light and accommodation. Extraocular movements are normal. CN V: Facial sensation is normal. CN VII: Facial movements symmetrical. CN VIII: Hearing intact to bedside conversation is normal. CN IX, X: Palate elevates symmetrically. CN XI: Shoulder shrug and head turn symmetrical. CN XII: Tongue midline without atrophy or fasciculations. Extrapyramidal: Full facial expressions and blinking. No rigidity. Movements are appropriate with no tremor or abnormality. Speech: Normal; no dysarthria or tremor. Assessment & Plan Assessment & Plan (1) Seizure disorder: Comment: Routine EEG at off in Aug 2024: Intermittent R frontal slowing CT brain WO [place] [facility] [place]23: Small area of hypodensity in right frontal periventricular area Code(s): G40.909 - Epilepsy, unspecified, not intractable, without status epilepticus Category: Medical Plan Impression: 24 years old man who came from [place] and apparently had some type of psychiatric disease and according to his mother also seizure disorder or convulsions. What exactly happened during the seizure was not known. His mother was quite concerned about him but he reported not having any convulsions. His head CT revealed a small area of hypodensity in right frontal region and his EEG revealed right frontal slowing but no epileptic discharges. Recommendations: 1. MRI of brain with and without contrast to define any epileptic lesion especially in right frontal lobe 2. Repeat EEG Orders: Orders EEG electroencephalogram Today G40.909 - Epilepsy, unspecified, not intractable, without status epilepticus MR head/brain wo/w con Today G40.909 - Epilepsy, unspecified, not intractable, without status epilepticus Coding Level of Care Code Tele Est Pt Level 4 (97965) Diagnoses Seizure disorder G40.909
== END 2024-12-31 14:17 | disposition home or self-care (01) ==
LOC: HO.HSM 13:12
PROVIDERS: PCP Nurse Practitioner Family; Visit Provider Psychiatry & Neurology Neurology
DX: G40.909 Epilepsy, unspecified, not intractable, without status epilepticus (principal)
CPT/HCPCS: 99214

== ENCOUNTER → 2024-12-31 13:12 | Outpatient (BNVA) | payer MEDICAID, SELFPAY | PROVIDERS: PCP Nurse Practitioner Family; Visit Provider Psychiatry & Neurology Neurology | DX: G40.909 Epilepsy, unspecified, not intractable, without status epilepticus (principal) | CPT/HCPCS: 99212 ==

== ENCOUNTER 2025-02-17 15:50 | Outpatient (REF) | payer MEDICAID, SELFPAY ==
--- OUTSIDE RECORDS SUMMARY | 2025-02-17 18:02 | XMS_ITS ---
Author Organization [employer] Address [address] [facility] 7t [place] [address] Care Team Providers Care Tire Stripper Name Role Phone JessicaJackelinEmiliana HOME CARE CHAPLAIN Primary Care Provider [phone] Ting Lancaster PharmD Unavailable [phone] CM Complex Status:Enrolled (Active) Start date:08/28/2024 Enrollment date:12/01/2024 Enrollment reason:C3 Manual Referral Overview C3 Escalation- Please see forwarded email for patient information. Please respond to email chain with updates within 24 hours. Also received PCP referral- Patient with active schizophrenia, needs VNA for medication admnistration. It has been difficult to get an agency. Mum is finding it difficult to provide adequate care Case Team Name Relationship Phone Emanuel Garcia RN(Responsible Staff) Registered Jonathon diggs [phone] Continued Care and Services Coordination
--- OUTSIDE RECORDS SUMMARY | 2025-02-17 18:02 | XMS_ITS ---
Author Organization [employer] Address [address] [facility] 7t [place] [address] Care Team Providers Care Medical Chemist Name Role Phone Jackelin Lopezupe CONTINUITY WRITER Primary Care Provider [phone] Ting Lancaster PharmD Unavailable [phone] CHW Complex Status:Enrolled (Active) Start date:08/28/2024 Enrollment [...] care Case Team Name Relationship Phone Larisa Duque(Responsible Staff) 1 [phone] Continued Care and Services Coordination
--- OUTSIDE RECORDS SUMMARY | 2025-02-17 18:02 | XMS_ITS | Encounter Summary ---
Author Organization [employer] Address [address] [facility] 7t [place] [address] Care Team Providers Care Tankman Name Role Phone Emiliana Lopez CRTTS Primary Care Provider [phone] Ting Lancaster PharmD Unavailable [phone] Encounter Details Date Type Department Care Team (Late st Contact Info) Description 10/03/2024 Refill [facility] [address] [place], [place] [phone] Emiliana Lopez FNP [address] [place] [address] Type 2 diabetes mellitus with hyperglycemia, without long-term current use of insulin ([facility]) Social History Tobacco Use Types Packs/Day Years Used Date Smoking Tobacco: Never Smokeless Tobacco: Never Alcohol Use Standard Drinks/Week Comments Never 0 (1 standard drink = 0.6 oz pur e alcohol) Housing Stability Answer Date Recorded What is your housing situation today? I have ivan sing 06/25/[address] you li [...] Care Team (Late st Contact Info) Description 03/02/2025 1:30 PM EDT Medication Management [facility] [address] [place] [address] Ting Lancaster PharmD [address] [place] [address] documented as of this encounter Visit Diagnoses Diagnosis Type 2 diabetes mellitus with hyperglycemia, without long-term current use of insulin ([facility]) documented in this encounter Care Teams Tankman Relationship Specialty Start Date End Date Emiliana Lopez FNP [address] [place] [id number] PCP - General Family Medicine 06/06/24 Ting Lancaster PharmD [address] [place] [id number] Pharmacist Pharmacy 01/26/25 [facility] 11/10/24 documented as of this encounter
--- OUTSIDE RECORDS SUMMARY | 2025-02-17 18:02 | XMS_ITS | Encounter Summary ---
Author Organization [employer] Address [address] [facility] 7t [place] [address] Care Team Providers Care Card Mounter Name Role Phone Emilaina Lopez SAW BOSS Primary Care Provider [phone] Ting Lancaster PharmD Unavailable [phone] Reason for Visit * Reason Onset Date Comments FYI 11/05/2024 Encounter Details Date Type Department Care Team ([facility] st Contact Info) Description 11/05/2024 Telephone [facility] [address] [place], [place] [phone] Emiliana Lopez FNP [address] [place] [address] FYI Social History Tobacco Use Types Packs/Day Years [...] encounter Miscellaneous Notes * Telephone Encounter - Sparkle Osorio - 11/05/2024 12:24 PM EDT Tc from [facility] with [facility] reporting pt referral for VNA services was accepted. Any questions more than welcome to contact [facility] [phone] documented in this encounter Plan of Treatment Upcoming Encounters Date Type Department Care Team (Late st Contact Info) Description 03/02/2025 1:30 PM EDT Medication Management [facility] [address] [place] [phone] Ting Lancaster PharmD [address] [place] [phone] documented as of this encounter Visit Diagnoses Not on filedocumented in this encounter Care Teams Card Mounter Relationship Specialty Start Date End Date Emiliana Lopez FNP [address] [place] [id number] PCP - General Family Medicine 06/06/24 Ting Lancaster PharmD [address] [place] [phone] Pharmacist Pharmacy 01/26/25 [facility] 11/10/24 documented as of this encounter
--- OUTSIDE RECORDS SUMMARY | 2025-02-17 18:02 | XMS_ITS | Clinical Summary ---
Author Organization [employer] Address [address] [facility] 7t [place] [address] Care Team Providers Care Petroleum Sampler Name Role Phone Emiliana Lopez PLASTICS PATTERNMAKER Primary Care Provider [phone] Ting Lancaster PharmD Unavailable [phone] Allergies No known active allergies Medications * This document contains information received from the source organization and may not represent a complete record from that organization. Blood Pressure Monitoring (Blood Pressure Cuff) misc 1 Units Once per day. 1 each 4 Active Blood Glucose Monitoring Suppl (FreeStyle [place] Lite) w/Device kit Use to test blood sugar twice daily before breakfast and at bedtime 1 kit 4 Active pen needle 32G x 4 mm misc Use as instructed 100 each 5 07/11/19 26 Active FREESTYLE LITE test strip Use to test blood sugar 3 times daily 100 each 12 5 07/11/19 26 Active TRUEplus Lancets 33G miscIndications :Type 2 diabetes mellitus with hyperglycemia, without long-term current use of insulin ([facility]) USE DIRECTED TO CHECK BLOOD SUGAR TWICE DAILY BEFORE BREAKFAST AND BEDTIME 100 each 3 5 Active atorvastatin (Lipitor) 20 MG tablet Take 1 tablet (20 mg) by mouth Once per day. 30 tablet 11 5 10/16/19 26 Active Alcohol Swabs (Alcohol Prep) 70 % pads USE DIRECTED TO CHECK BLOOD SUGAR TWICE DAILY BEFORE BREAKFAST AND BEDTIME 100 each 5 5 Active losartan (Cozaar) 25 MG tablet Take 1 tablet (25 mg) by mouth Once per day. 30 tablet 3 5 11/14/19 26 Active levothyroxine (Synthroid, Levoxyl) 25 MCG tablet TAKE 1 TABLET BY MOUTH EVERY MORNING BEFORE BREAKFAST 90 tablet 5 Active QUEtiapine (SEROquel) 25 MG tabletIndicatio ns:Psychosis, unspecified psychosis type (CMS/HCC) Take 1 tablet (25 mg) by mouth at bedtime. 30 tablet 1 5 02/24/20 25 Active busPIRone (Buspar) 10 MG tabletIndicatio ns:Anxiety Take 1 tablet (10 mg) by mouth 2 times daily. 60 tablet 1 5 02/24/20 25 Active omeprazole (PriLOSEC) [address] capsuleIndicati ons:Atypical chest pain TAKE 1 CAPSULE BY MOUTH EVERY MORNING 90 capsule 5 Active Dulaglutide (Trulicity) 4.5 MG/0.5ML solution auto-injector Inject 4.5 mg under the skin 1 (one) time per week. 2 mL 11 5 Active empagliflozin-m etFORMIN (Synjardy) 5-1000 MG Take 1 tablet by mouth with breakfast and with evening meal. 180 tablet 3 5 01/27/20 26 Active glimepiride (Amaryl) 4 MG tabletIndicatio ns:Type 2 diabetes mellitus with hyperglycemia, without long-term current use of insulin (CMS/HCC) Take 1 tablet (4 mg) by mouth before breakfast. 90 tablet 1 5 01/27/20 25 Discontin ued(Alter elba therapy) metFORMIN (Glucophage) 1000 MG tabletIndicatio ns:Type 2 diabetes mellitus with hyperglycemia, without long-term current use of insulin (CMS/HCC) TAKE 1 TABLET BY MOUTH TWICE DAILY IN THE MORNING AND AT BEDTIME WITH FOOD 180 tablet 1 5 01/27/20 25 Discontin ued(Alter elba therapy) Dulaglutide (Trulicity) 3 MG/0.5ML solution auto-injectorIn dications:Type 2 diabetes mellitus with hyperglycemia, without long-term current use of insulin (CMS/HCC) Inject 0.5 mL under the skin 1 (one) time per week. 2 mL 1 5 01/27/20 25 Discontin ued(Dose adjustmen t) Active Problems Problem Noted Date Diagnosed Date Atypical chest pain 10/18/2024 Encounter for immunization 10/18/2024 Class 3 severe obesity due t o excess calories with body mass index (BMI) of 40.0 to 44.9 in adult 10/18/2024 BMI 40.0-44.9, adult 09/02/2024 Dietary counseling 09/02/2024 [...] and psychiatry services when pt lived in [place]. Family moved to [place] in December 2023. Pt is not med compliant, mom requested Nursing Home Visits to assist with medication concerns. Hx [...] organization. Date Type Department Care Team Description 02/05/2025 Patient Outreach [facility] [address] [place] [phone] [place] Emiliana, PLASTICS PATTERNMAKER Care Coordination (C3 -[facility] Larisa Duque telephone call ) 02/05/2025 Patient Outreach [address] [address] OkhipoJackelinEmiliana, PLASTICS PATTERNMAKER 02/03/2025 Patient Outreach [address] [address] [place], Emiliana, PLASTICS PATTERNMAKER Care Management (C3- Follow up call # 2/LV) 01/29/2025 Patient Outreach [address] [address] [place] Emiliana, PLASTICS PATTERNMAKER 01/26/2025 Travel 01/12/[address] [address] [place] Emiliana, PLASTICS PATTERNMAKER [place] Recall 01/09/2025 Patient Outreach [address] [address] [place], Emiliana, PLASTICS PATTERNMAKER Care Coordination (C3 -[facility] [employer] telephone call outreach ) 01/06/2025 Refill [facility] [address] [place] [phone] [place], Emiliana, PLASTICS PATTERNMAKER Atypical chest pain 12/31/2024 Patient Outreach [address] [address] [place], Emiliana, PLASTICS PATTERNMAKER Care Management (C3- F/U call # 1) 12/25/2024 Refill [facility] [address] [place] [address] [place]o, Emiliana, PLASTICS PATTERNMAKER Psychosis, unspecified psychosis type (CMS/HCC); Anxiety 12/10/2024 Refill [facility] [address] [place] [address] Emiliana Lopez FNP Type 2 diabetes mellitus with hyperglycemia, without long-term current use of insulin ([facility]) (Primary Dx) 12/04/2024 Refill [facility] [address] [place] [address] Emiliana Lopez FNP Type 2 diabetes mellitus with hyperglycemia, without long-term current use of insulin (CMS/[facility]) 12/03/2024 Patient Outreach [facility] [address] [place] [address] Emiliana Lopez, PLASTICS PATTERNMAKER Care Coordination 12/02/2024 Telephone [facility] [address] [place] [address] La Thomas, FOREST 12/02/2024 Plan of Care Documentation [facility] [address] [place] [address] 12/01/2024 Patient Outreach [facility] [address] [place] [address] Emiliana Lopez, BRANDEE Care Management (C3CM- Initial assessment/enrollmen t) 11/27/2024 Refill [facility] [address] [place] [address] Emiliana Lopez FNP 11/26/2024 Telephone [facility] [address] [place] [address] Emiliana Lopez, PLASTICS PATTERNMAKER 11/25/2024 1:00 PM EDT Nutrition [facility] [address] [place] [address] Class 3 severe obesity due to excess calories with body mass index (BMI) of 40.0 to 44.9 in adult, unspecified whether serious comorbidity present 11/25/2024 Travel from Last 3 Months Immunizations Immunization Administration Dates Next Due Pneumococcal Conjugate PCV [...] drink = 0.6 oz pur e alcohol) Depression Answer Date Recorded Patient Health Questionnaire-9 Score 5 12/01/2024 Patient Health Questionnaire-9 Score 5 12/01/2024 Last PHQ-9: Questionnaire Data Not on file 0 12/01/2024 Housing Stability Answer Date Recorded What is [...] things needed for daily living? No 06/25/2024 Intimate Partner Violence Answer Date R ecorded Within the last year, have y ou been afraid of your partner or ex-partner? 2 12/01/2024 Within the last year, have y ou been humiliated or emotionally abused in other ways by your partner or ex-partner? 2 Within the last year, have y ou been kicked, hit, slapped, or otherwise physically hurt by your partner or ex-partner? 2 12/01/2024 Within the last year, have y ou been raped or forced to have any kind of sexual activity by your partner or ex-partner? 2 12/01/2024 Utilities Answer Date Recorded In the past 12 months, has t he electric, gas, oil or water company threatened to shut off services in your home? No 06/25/2024 Depression Answer Date Recorded Patient Health Questionnaire-2 Score 2 12/01/2024 Internet Access Answer Date Recorded Internet Access [...] Sign Reading Time Taken Comments Blood Pressure 136/94 11/13/2024 11:40 AM EDT Pulse 78 11/13/2024 11:16 AM EDT Temperature 37 C (98.6 F) 11/13/2024 11:16 AM EDT Respiratory Rate 18 11/13/2024 11:16 AM EDT Oxygen Saturation 98% 11/13/2024 11:16 AM EDT Inhaled Oxygen Concentration - - Weight 132 kg (291 lb) 11/25/2024 2:05 PM EDT Height 180.5 cm (5' 11.06 ) 11/25/2024 2:05 PM E DT Body Mass Index 40.52 11/25/2024 2:05 PM EDT Plan of Treatment Upcoming Encounters Date Type Department Care Team (Late st Contact Info) Description 03/02/2025 1:30 PM EDT Medication Management [facility] [address] [place] [address] Ting Lancaster, PharmD [address] [place] [address] Health Maintenance Due Date Last Done Comments HIV Screening 2000 Diabetes: Foot Exam 2010 Eye Exam 2010 Family Planning (PISQ) 2015 HPV Vaccines (1 - Male 3-dose series) 2015 Hepatitis C Screening 2018 Hepatitis B Vaccines (1 of 3 - 19+ 3-dose series) 2019 COVID-19 Vaccine ( season) 2025 Influenza Vaccine (#1) 2025 Diabetes: Hemoglobin A1C 04/28/202501/26/ 025, 10/15/2024, 08/27/2024, Additional history exists Alcohol/Substance Use Screening 06/06/2025 06/06/2024 Diabetes: Urine Protein Screening 06/09/2025 06/09/2024 SDOH Screening 06/25/2025 06/25/2024 Disability Screening 10/15/2025 10/15/2024 Lipid Panel 10/15/2025 10/15/2024, 08/28/2024 Tobacco Screening 11/13/2025 11/13/2024 Depression Screening 12/01/2025 12/01/2024, 12/02/19 25 DTaP/Tdap/Td Vaccines (2 - Td or Tdap) 10/15/2034 10/15/2024 Zoster Vaccines (1 of 2) 2050 RSV Patients and Patients Aged 60 years or older (1 - 1-dose 75+ series) 2075 Pneumococcal Vaccine: Pediatrics (0 to 5 Years) and At-Risk Patients (6 to 49) Years Completed 10/15/2024 HIB Vaccines Aged Out No longer eligi ble based on patient's age to complete this topic Hepatitis A Vaccines Aged Out No long er eligible based on patient's age to complete this topic IPV Vaccines Aged Out No longer eligi ble based on patient's age to complete this topic Meningococcal B Vaccine Aged Out No l onger eligible based on patient's age to complete [...] Diagnosis Comments POCT GLYCATED HEMOGLOBIN, TOTAL Routine 01/26/2025 1:44 PM EDT Type 2 diabetes mellitus with hyperglycemia, without long-term current use of insulin ([facility]) LIPID PANEL, STANDARD Routine 10/15/2024 11:33 AM EDT Type 2 diabetes mellitus with hyperglycemia, without long-term current use of insulin ([facility]) ALBUMIN, RANDOM URINE W/CREATININE Routine 06/09/2024 1:27 PM EST Adult wellness visit Type 2 diabetes mellitus with hyperglycemia, without long-term current use of insulin (CMS/[facility]) from Last 3 Months or Most Recently Relevant to Health Maintenance Results * (ABNORMAL) POCT A1c (01/26/2025 1:44 PM EDT) Hemoglobin A1C 9.1(A) 4.0 - 5.7 % QC Media Lot # [id number] Lot# Expiration Date Blood 01/26/2025 1:44 PM EDT [employer] [facility] POINT OF CARE TEST ENTER/EDIT ORDERABLES Final Result * (ABNORMAL) Lipid Panel, Standard (10/15/2024 11:33 AM EDT) Triglycerides 657(H) <150 mg/dL [facility] Comment:Slight Lipemia.Jamie able Triglyceride: less than 150 mg/dLBorderline High Triglyceride 150-199 mg/dLHigh Triglyceride: 200-499 mg/dLVery High Triglyceride: greater than or equal to 5OO mg/dL Cholesterol 186 <200 mg/dL [facility] Comment:Desirable Cholestero l: less than 200 mg/dLBorderline High Cholesterol: 200-239 mg/dLHigh Cholesterol: greater than 239 mg/dL LDL Cholesterol Calculated TNP <100 mg/dL [facility] Comment:Unable to calculate the LDL. The formula of Friedwald,Ornelas, and Francis is only valid if the triglycerides areless than 400 mg/dl. HDL Cholesterol 29(L) >40 mg/dL [facility] Comment:Desirable HDL: great er than 40 mg/dL Note: This HDL assay may give artificially low results in patients with liver disease. Blood Venous blood specimen / Unknown 10/15/2024 11:33 AM EDT 10/15/2024 1:32 PM EDT [employer] [facility] BLOOD ORDERABLES Final Res ult [facility] [address] [place] [phone] * (ABNORMAL) Albumin, Random Urine W/Creatinine (06/09/2024 1:27 PM EST) Creatinine, Urine 97.63 mg/dL [facility] Microalbumin Urine 40.0 mg/L [facility] Microalbum Creatinine Ratio Ur 40.9(H) <30 ug/mg cr [facility] Comment:Albumin/Creatinine R atio Reference Ranges: Normal: < 30 ug/mg creatinine Microalbuminuria: 30 - 300 ug/mg creatinineClinical Albuminuria: > 300 ug/mg creatinine Urine (Urine, Random) 06/09/2024 1:27 PM EST 06/09/2024 5:29 PM EST us Emiliana [facility] URINE ORDERABLES Final Res ult [facility] [address] [place] [phone] from Last 3 Months or Most Recently Relevant to Health Maintenance [place] [place] [address] C3 Care Teams Petroleum Sampler Relationship Specialty Start Date End Date Emiliana Lopez FNP [address] [place] [address] PCP - General Family Medicine 06/06/24 Ting Lancaster PharmD [address] [place] [address] Pharmacist Pharmacy 01/26/25 [facility] 11/10/24
--- OUTSIDE RECORDS SUMMARY | 2025-02-17 18:02 | XMS_ITS | Encounter Summary ---
Author Organization [employer] Address [address] [facility] 7[address] [place] [address] Care Team Providers Care Sealer Sander Name Role Phone Emiliana Lopez POKER SUPERVISOR Primary Care Provider [phone] Ting Lancaster PharmD Unavailable [phone] Reason for Visit * Reason Onset Date Comments Appointment Request 10/23/2024 Encounter Details Date Type Department Care Team ([facility] st Contact Info) Description 10/23/2024 Telephone [facility] [address] [place], [place] [phone] Emiliana Lopez FNP [address] [place] [address] Appointment Request Social History Tobacco Use Types Packs/Day Years [...] encounter Miscellaneous Notes * Telephone Encounter - Nedra Villavicencio - 10/23/2024 8:31 AM EDT Tc from pt mom requesting r/s 10/23 appointment with Ting. documented in this encounter Plan of Treatment Upcoming Encounters Date Type Department Care Team (Late st Contact Info) Description 03/02/2025 1:30 PM EDT Medication Management [facility] [address] [place] [address] Ting Lancaster PharmD [address] [place] [address] documented as of this encounter Visit Diagnoses Not on filedocumented in this encounter Care Teams Sealer Sander Relationship Specialty Start Date End Date Emiliana Lopez FNP [address] [place] [id number] PCP - General Family Medicine 06/06/24 Ting Lancaster PharmD [address] [place] [phone] Pharmacist Pharmacy 01/26/25 [facility] 11/10/24 documented as of this encounter
--- OUTSIDE RECORDS SUMMARY | 2025-02-17 18:02 | XMS_ITS | Encounter Summary ---
Author Organization [employer] Address [address] [facility] [address] [place] [address] Care Team Providers Care Brakeshoe Repairer Name Role Phone Emiliana Lopez DNA SEQUENCING ASSOCIATE Primary Care Provider [phone] Ting Lancaster PharmD Unavailable [phone] Encounter Details Date Type Department Care Team (Late st Contact Info) Description 10/14/2024 Orders Only [facility] [address] [place], [place] [phone] Emiliana Lopez FNP [address] [place] [address] Social History Tobacco Use Types Packs/Day Years [...] AM EST documented as of this encounter Functional Status * Over the last 2 weeks, how often have you been bothered by any of the following problems? Question Answer Date of Assessment Author Feeling nervous, anxious, or on edge 0 10/15/2024 10:54 AM EDT Larisa Blake MA Not being able to stop or control worrying 0 10/15/2024 10:54 AM EDT Larisa Blake MA Worrying too much about different things 0 10/15/2024 10:54 AM EDT Larisa Blake MA Trouble relaxing 0 10/15/2024 10:54 AM EDT Larisa Blake MA Being so restless that it is hard to sit still 0 10/15/2024 10:54 AM EDT Larisa Blake MA Becoming easily annoyed or irritable 0 10/15/2024 10:54 AM EDT Larisa Blake MA Feeling afraid as if something awful might happen 0 10/15/2024 10:54 AM EDT Larisa Walker MA FLORY-7 Total Score 0 10/15/2024 10:54 AM EDT Larisa Blake MA documented as of this encounter Plan of Treatment Upcoming Encounters Date Type Department Care Team (Late st Contact Info) Description 03/02/2025 1:30 PM EDT Medication Management [facility] [address] [place] [address] Ting Lancaster, ArleneD [address] [place] [address] documented as of this encounter Visit Diagnoses Not on filedocumented in this encounter Care Teams Brakeshoe Repairer Relationship Specialty Start Date End Date Emiliana Lopez FNP [address] [place] [address] PCP - General Family Medicine 06/06/24 Ting Lancaster PharmD [address] [place] [address] Pharmacist Pharmacy 01/26/25 [facility] 11/10/24 documented as of this encounter
== END 2025-02-17 15:51 | disposition home or self-care (01) ==
LOC: HO.MRI 15:50
PROVIDERS: Visit Provider Psychiatry & Neurology Neurology
DX: Z13.89 Encounter for screening for other disorder (principal)

== ENCOUNTER 2025-02-20 13:26 | Outpatient (REF) | payer MEDICAID, SELFPAY ==
--- OUTSIDE RECORDS SUMMARY | 2025-02-20 16:07 | XMS_ITS | Clinical Summary ---
Author Organization [employer] Address [address] [facility] 7t [place] [address] Care Team Providers Care Carpenter Cradle And Dolly Name Role Phone Emiliana Lopez FUR BLOWER OPERATOR Primary Care Provider [phone] Ting Lancaster PharmD Unavailable [phone] Allergies No known active allergies Medications * This document contains information received from the source organization and may not represent a complete record from that organization. Blood Pressure Monitoring (Blood Pressure Cuff) misc 1 Units Once per day. 1 each 06/06/20 24 Active Blood Glucose Monitoring Suppl (FreeStyle Cincinnatus Lite) w/Device kit Use to test blood sugar twice daily before breakfast and at bedtime 1 kit 06/06/20 24 Active pen needle 32G x 4 mm misc Use as instructed 100 each 07/11/19 25 026 Active FREESTYLE LITE test strip Use to test blood sugar 3 times daily 100 each 12 07/11/19 25 026 Active TRUEplus Lancets 33G miscIndication s:Type 2 diabetes mellitus with hyperglycemia, without long-term current use of insulin ([facility]) USE DIRECTED TO CHECK BLOOD SUGAR TWICE DAILY BEFORE BREAKFAST AND BEDTIME 100 each 3 09/25/19 25 Active atorvastatin (Lipitor) 20 MG tablet Take 1 tablet (20 mg) by mouth Once per day. 30 tablet 11 10/16/19 25 026 Active Alcohol Swabs (Alcohol Prep) 70 % pads USE DIRECTED TO CHECK BLOOD SUGAR TWICE DAILY BEFORE BREAKFAST AND BEDTIME 100 each 5 10/19/19 25 Active levothyroxine (Synthroid, Levoxyl) 25 MCG tablet TAKE 1 TABLET BY MOUTH EVERY MORNING BEFORE BREAKFAST 90 tablet 11/29/19 25 Active omeprazole (PriLOSEC) [address] capsuleIndicat ions:Atypical chest pain TAKE 1 CAPSULE BY MOUTH EVERY MORNING 90 capsule 01/10/20 25 Active Dulaglutide (Trulicity) 4.5 MG/0.5ML solution auto-injector Inject 4.5 mg under the skin 1 (one) time per week. 2 mL 11 01/27/20 25 Active empagliflozin- metFORMIN (Synjardy) 5-1000 MG Take 1 tablet by mouth with breakfast and with evening meal. 180 tablet 3 01/27/20 25 026 Active busPIRone (Buspar) 10 MG tabletIndicati ons:Anxiety TAKE 1 TABLET BY MOUTH TWICE DAILY IN THE MORNING AND AT BEDTIME 60 tablet 1 02/20/20 25 Active QUEtiapine (SEROquel) 25 MG tabletIndicati ons:Psychosis, unspecified psychosis type (CMS/HCC) TAKE 1 TABLET BY MOUTH AT BEDTIME 30 tablet 1 02/20/20 25 Active losartan (Cozaar) 25 MG tablet TAKE 1 TABLET BY MOUTH EVERY MORNING 90 tablet 02/20/20 25 Active glimepiride (Amaryl) 4 MG tabletIndicati ons:Type 2 diabetes mellitus with hyperglycemia, without long-term current use of insulin (CMS/HCC) Take 1 tablet (4 mg) by mouth before breakfast. 90 tablet 1 08/08/19 025 Discontinued(Al ternate therapy) losartan (Cozaar) 25 MG tablet Take 1 tablet (25 mg) by mouth Once per day. 30 tablet 3 11/14/19 025 Discontinued(Re order (will not trigger notification to Pharmacy)) metFORMIN (Glucophage) 1000 MG tabletIndicati ons:Type 2 diabetes mellitus with hyperglycemia, without long-term current use of insulin (CMS/HCC) TAKE 1 TABLET BY MOUTH TWICE DAILY IN THE MORNING AND AT BEDTIME WITH FOOD 180 tablet 1 12/05/19 25 025 Discontinued(Al ternate therapy) Dulaglutide (Trulicity) 3 MG/0.5ML solution auto-injectorI ndications:Typ e 2 diabetes mellitus with hyperglycemia, without long-term current use of insulin (CMS/HCC) Inject 0.5 mL under the skin 1 (one) time per week. 2 mL 1 07/04/ 025 Discontinued(Do se adjustment) QUEtiapine (SEROquel) 25 MG tabletIndicati ons:Psychosis, unspecified psychosis type (CMS/HCC) Take 1 tablet (25 mg) by mouth at bedtime. 30 tablet 1 12/26/19 025 Discontinued busPIRone (Buspar) 10 MG tabletIndicati ons:Anxiety Take 1 tablet (10 mg) by mouth 2 times daily. 60 tablet 1 12/26/19 025 Discontinued Active Problems Problem Noted Date Diagnosed Date [...] Seizures 06/06/2024 Type 2 diabetes mellitus, wi out long-term current use of insulin 06/06/2024 Assessment [...] Pt is not med compliant, mom requested Care Home Visits to assist with medication concerns. [...] factors using open-ended questions. Provided information for [facility] crisis line. Pt will be refer out for psychiatry services and OP therapy center-base. PCP informed about [facility] request to assist pt with medication compliance. Encounters * This document contains information received from the source organization and may not represent a complete record from that organization. Date Type Department Care Team Description 02/20/2025 Refill [facility] [address] [place] [address] Pastor Lopeze, FUR BLOWER OPERATOR 02/19/2025 Refill [facility] [address] [place] [address] Portiao Emiliana, FUR BLOWER OPERATOR Anxiety; Psychosis, unspecified psychosis type ([facility]/HCC) 02/18/2025 Refill [facility] [address] [place] [address] OkjaneoJackelinEmiliana, FUR BLOWER OPERATOR Anxiety; Psychosis, unspecified psychosis type (CMS/HCC) 02/18/2025 Refill [facility] [address] [place] [address] Ruba Malin DO 02/05/2025 Patient Outreach [facility] [address] [place] [address] Okjaneo Emiliana, FUR BLOWER OPERATOR Care Coordination ([facility] Larisa Duque telephone call ) 02/05/2025 Patient Outreach [facility] [address] [place] [address] Jackelin Lopezupe, FUR BLOWER OPERATOR 02/03/2025 Patient Outreach [address] [address] Okjaneo Emiliana, FUR BLOWER OPERATOR Care Management ([facility]- Follow up call # 2/LVM) 01/29/2025 Patient Outreach [address] [address] Okhipo, Emiliana, FUR BLOWER OPERATOR 01/26/2025 Travel 01/12/[address] [address] Okhipo, Emiliana, FUR BLOWER OPERATOR [place] Recall 01/09/2025 Patient Outreach [address] [address] Okhipo, Emiliana, FUR BLOWER OPERATOR Care Coordination ([facility] Larisa Duque telephone call outreach ) 01/06/2025 Refill [facility] [address] [place] [address] Okhipo, Emiliana, FUR BLOWER OPERATOR Atypical chest pain 12/31/2024 Patient Outreach [address] [address] Okhipo, Emiliana, FUR BLOWER OPERATOR Care Management ([facility]- F/U call # 1) 12/25/2024 Refill [facility] [address] [place] [address] Okhipo, Emiliana, FUR BLOWER OPERATOR Psychosis, unspecified psychosis type ([facility]/HCC); Anxiety 12/10/[address] [address] Okhipo, Emiliana, FUR BLOWER OPERATOR Type 2 diabetes mellitus with hyperglycemia, without long-term current use of insulin ([facility]) (Primary Dx) 12/04/2024 Refill [facility] [address] [place] [address] Okhipo, Emiliana, FUR BLOWER OPERATOR Type 2 diabetes mellitus with hyperglycemia, without long-term current use of insulin (CMS/HCC) 12/03/2024 Patient Outreach [address] [address] Okhipo, Emiliana, FUR BLOWER OPERATOR Care Coordination 12/02/2024 Telephone [facility] [address] [place] [address] La Thomas OD 12/02/2024 Plan of Care Documentation [address] [place] [address] 12/01/[address] [facility] [place] [address] Emiliana Lopez FNP Care Management ([facility]- Initial assessment/enrollmen t) 11/27/2024 Refill [facility] [place] [address] Emiliana Lopez FNP 11/26/[address] [facility] [place] [address] Emiliana Lopez FNP 11/25/2024 1:00 PM EDT Nutrition [facility] [address] Class 3 severe obesity [...] Care Team (Late st Contact Info) Description 02/25/2025 10:30 AM EDT Office Visit [facility] [address] [place], [place] [phone] Emiliana Lopez FNP [address] [place] [address] 03/02/2025 1:30 PM EDT Medication Management [facility] [address] [place], [place] [phone] Ting Lancaster, ArleneD [address] [place], [place] [phone] Health Maintenance Due Date Last Done Comments HIV Screening 2000 Diabetes: Foot Exam 2010 Eye Exam 2010 Family Planning (PISQ) 2015 HPV Vaccines (1 - Male 3-dose series) 2015 Hepatitis C Screening 2018 Hepatitis B Vaccines (1 of 3 - 19+ 3-dose series) 2019 COVID-19 Vaccine ( - 2023- season) 2025 Influenza Vaccine (#1) 2025 Diabetes: Hemoglobin A1C 04/28/2025 08/ 025, 10/15/2024, 08/27/2024, Additional history exists Alcohol/Substance Use Screening 06/06/2025 06/06/2024 Diabetes: Urine Protein Screening 06/09/2025 06/09/2024 SDOH Screening 06/25/2025 06/25/2024 Disability Screening 10/15/2025 10/15/2024 Lipid Panel 10/15/2025 10/15/2024, 08/28/2024 Tobacco Screening 11/13/2025 11/13/2024 Depression Screening 12/01/2025 12/01/2024, 12/02/19 DTaP/Tdap/Td Vaccines (2 - Td or Tdap) [...] hyperglycemia, without long-term current use of insulin ([facility]) LIPID PANEL, STANDARD Routine 10/15/2024 11:33 AM EDT Type 2 diabetes mellitus with hyperglycemia, without long-term current use of insulin ([facility]) ALBUMIN, RANDOM URINE W/CREATININE Routine 06/09/2024 1:27 PM EST Adult wellness visit Type 2 diabetes mellitus with hyperglycemia, without long-term current use of insulin ([facility]) from Last 3 Months or Most Recently Relevant to Health Maintenance Results * (ABNORMAL) POCT A1c (01/26/2025 1:44 PM EDT) Pathologist [facility] Hemoglobin A1C 9.1(A) 4.0 - 5.7 % QC Media Lot # [id number] Lot# Expiration Date Blood 01/26/2025 1:44 PM EDT Emilianaradha Pearceo [facility] POINT OF CARE TEST ENTER/EDIT ORDERABLES Final Result * (ABNORMAL) Lipid Panel, Standard (10/15/2024 11:33 AM EDT) Triglycerides 657(H) <150 mg/dL [facility] Comment:Slight Lipemia.Ajmie able Triglyceride: less than 150 mg/dLBorderline High Triglyceride 150-199 mg/dLHigh Triglyceride: 200-499 mg/dLVery High Triglyceride: greater than or equal to 5OO mg/dL Cholesterol 186 <200 mg/dL [facility] Comment:Desirable Cholestero l: less than 200 mg/dLBorderline High Cholesterol: 200-239 mg/dLHigh Cholesterol: greater than 239 mg/dL LDL Cholesterol Calculated TNP <100 mg/dL [facility] Comment:Unable to calculate the LDL. The formula of Friedwald,Ornelas, and Francis is only valid if the triglycerides areless than 400 mg/dl. HDL Cholesterol 29(L) >40 mg/dL [facility] Comment:Desirable HDL: great er than 40 mg/dL Note: This HDL assay may give artificially low results in patients with liver disease. Blood Venous blood specimen / Unknown 10/15/2024 11:33 AM EDT 10/15/2024 1:32 PM EDT us Emiliana Lopez [facility] BLOOD ORDERABLES Final Res ult [facility] [address] [place] [phone] * (ABNORMAL) Albumin, Random Urine W/Creatinine (06/09/2024 1:27 PM EST) Creatinine, Urine 97.63 mg/dL [facility] Microalbumin Urine 40.0 mg/L [facility] Microalbum Creatinine Ratio Ur 40.9(H) <30 ug/mg cr [facility] Comment:Albumin/Creatinine R atio Reference Ranges: Normal: < 30 ug/mg creatinine Microalbuminuria: 30 - 300 ug/mg creatinineClinical Albuminuria: > 300 ug/mg creatinine Urine (Urine, Random) 06/09/2024 1:27 PM EST 06/09/2024 5:29 PM EST Emiliana [facility] URINE ORDERABLES Final Res ult [facility] [address] [place] [address] [phone] from Last 3 Months or Most Recently Relevant to Health Maintenance Insurance [facility] C3 Care Teams Carpenter Cradle And Dolly Relationship Specialty Start Date End Date Emiliana Lopez FNP [address] [place] [address] PCP - General Family Medicine 06/06/24 Ting Lancaster PharmD [address] [place] [address] Pharmacist Pharmacy 01/26/25 [facility] 11/10/24
--- OUTSIDE RECORDS SUMMARY | 2025-02-20 16:07 | XMS_ITS | Encounter Summary ---
Author Organization [employer] Address [address] [facility] 7t [place] [address] Care Team Providers Care Council Member Name Role Phone Emiliana Lopez WEB CONSULTANT Primary Care Provider [phone] Ting Lancaster PharmD Unavailable [phone] Encounter Details Date Type Department Care Team (Late st Contact Info) Description 02/19/2025 Refill [facility] [address] [place], [place] [phone] Emiliana Lopez FNP [address] [place] [address] Anxiety; Psychosis, unspecified psychosis type (CMS/HCC) Social History Tobacco Use Types Packs/Day [...] Description 02/25/2025 10:30 AM EDT Office Visit [facility] [address] [place] [address] Emiliana Lopez FNP [address] [place] [address] 03/02/2025 1:30 PM EDT Medication Management [facility] [address] [place] [address] Ting Lancaster, Renu [address] [place] [address] documented as of this encounter Visit Diagnoses Diagnosis Anxiety Anxiety state, unspecified Psychosis, unspecified psychosis type (CMS/HCC) documented in this encounter Additional Health Concerns Assessment Noted Time PHQ-9 Depression Total Score: 5 12/02/19 25 2:23 PM EDT documented as of this encounter Care Teams Council Member Relationship Specialty Start Date End Date Emiliana Lopez FNP [address] [place] [address] PCP - General Family Medicine 06/06/24 Ting Lancaster PharmD [address] [place] [address] Pharmacist Pharmacy 01/26/25 [facility] 11/10/24 documented as of this encounter
--- OUTSIDE RECORDS SUMMARY | 2025-02-20 16:07 | XMS_ITS ---
Author Organization [employer] Address [address] [facility] 7t [place] [address] Care Team Providers Care Cnc Manufacturing Engineer Name Role Phone Jackelin Lopezupe FOSTER CARE THERAPIST Primary Care Provider [phone] Ting Lancaster PharmD Unavailable [phone] CH[facility] Complex Status:Enrolled (Active) Start date:08/28/2024 Enrollment [...] Team Name Relationship Phone Larisa Duque(Responsible Staff) [phone] Continued Care and Services Coordination
--- OUTSIDE RECORDS SUMMARY | 2025-02-20 16:07 | XMS_ITS | Encounter Summary ---
Author Organization [employer] Address [address] [facility] 7t [place] [address] Care Team Providers Care Production Technician Name Role Phone Emiliana Lopez HISTOLOGY SPECIALIST Primary Care Provider [phone] Ting Lancaster PharmD Unavailable [phone] Reason for Visit * Reason Onset Date Comments Appointment Request 10/23/2024 Encounter Details Date Type Department Care Team ([facility] st Contact Info) Description 10/23/2024 Telephone [facility] [address] [place], [place] [phone] Emiliana Lopez FNP [address] [place] [address] Appointment Request Social History Tobacco Use Types [...] Description 02/25/2025 10:30 AM EDT Office Visit [facility] [address] [place] [address] Emiliana Lopez FNP [address] [place] [address] 03/02/2025 1:30 PM EDT Medication Management [facility] [address] [place] [address] Ting Lancaster PharmD [address] [place] [address] documented as of this encounter Visit Diagnoses Not on filedocumented in this encounter Care Teams Production Technician Relationship Specialty Start Date End Date Emiliana Lopez FNP [address] [place] [address] PCP - General Family Medicine 06/06/24 Ting Lancaster PharmD [address] [place] [address] Pharmacist Pharmacy 01/26/25 [facility] 11/10/24 documented as of this encounter
--- OUTSIDE RECORDS SUMMARY | 2025-02-20 16:07 | XMS_ITS | Encounter Summary ---
Author Organization [employer] Address [address] [facility] [address] 7t [place] [address] Care Team Providers Care Renderer Name Role Phone Emiliana Lopez FINISHING SUPERVISOR PLASTIC SHEETS Primary Care Provider [phone] Ting Lancaster PharmD Unavailable [phone] Reason for Visit * Reason Comments Med Refill Encounter Details Date Type Department Care Team ([facility] st Contact Info) Description 02/18/2025 Refill [facility] [address] [place], [place] [phone] Ruba Malin DO [address] [place] [address] Social History Tobacco Use Types Packs/Day Years [...] Description 02/25/2025 10:30 AM EDT Office Visit [facility] [address] [place] [address] Emiliana Lopez FNP [address] [place] [address] 03/02/2025 1:30 PM EDT Medication Management [facility] [address] [place] [address] Ting Lancaster, Renu [address] [place] [address] documented as of this encounter Visit Diagnoses Not on filedocumented in this encounter Additional Health Concerns Assessment Noted Time PHQ-9 Depression Total Score: 5 12/02/19 25 2:23 PM EDT documented as of this encounter Care Teams Renderer Relationship Specialty Start Date End Date Emilinaa Lopez FNP [address] [place] [address] PCP - General Family Medicine 06/06/24 Ting Lancaster PharmD [address] [place] [address] Pharmacist Pharmacy 01/26/25 [facility] 11/10/24 documented as of this encounter
--- OUTSIDE RECORDS SUMMARY | 2025-02-20 16:07 | XMS_ITS | Encounter Summary ---
Author Organization [employer] Address [address] [facility] 7t [place] [address] Care Team Providers Care Student Financial Services Counselor Name Role Phone Emiliana Lopez AIR BOX TESTER Primary Care Provider [phone] Ting Lancaster PharmD Unavailable Encounter Details Date Type Department Care Team (Late st Contact Info) Description 02/20/2025 Refill [facility] [address] [place] [address] Emiliana Lopez FNP [address] [place] [address] Social History Tobacco Use Types Packs/Day Years [...] Description 02/25/2025 10:30 AM EDT Office Visit [facility] [address] [place] [address] Emiliana Lopez FNP [address] [place] [address] 03/02/2025 1:30 PM EDT Medication Management [facility] [address] [place] [address] Ting Lancaster PharmD [address] [place] [address] documented as of this encounter Visit Diagnoses Not on filedocumented in this encounter Additional Health Concerns Assessment Noted Time PHQ-9 Depression Total Score: 5 12/02/19 25 2:23 PM EDT documented as of this encounter Care Teams Student Financial Services Counselor Relationship Specialty Start Date End Date Emiliana Lopez FNP [address] [place] [address] PCP - General Family Medicine 06/06/24 Ting Lancaster PharmD [address] [place] [address] Pharmacist Pharmacy 01/26/25 [facility] 11/10/24 documented as of this encounter
--- OUTSIDE RECORDS SUMMARY | 2025-02-20 16:07 | XMS_ITS | Encounter Summary ---
Author Organization [employer] Address [address] [facility] 7t [place] [address] Care Team Providers Care Wirer Maintenance Name Role Phone Emiliana Lopez FABRIC AND TEXTILE FACTORY WORKER Primary Care Provider [phone] Ting Lancaster PharmD Unavailable [phone] Encounter Details Date Type Department Care Team (Late st Contact Info) Description 10/03/2024 Refill [facility] [address] [place], [place] [phone] Emiliana Lopez FNP [address] [place] [address] Type 2 diabetes mellitus with hyperglycemia, without long-term current use of insulin ([facility]) Social History Tobacco Use Types Packs/Day Years [...] 02/25/2025 10:30 AM EDT Office Visit [facility] [address] [place] [address] Emiliana Lopez FNP [address] [place] [address] 03/02/2025 1:30 PM EDT Medication Management [facility] [address] [place] [address] Ting Lancaster PharmD [address] [place] [address] documented as of this encounter Visit Diagnoses Diagnosis Type 2 diabetes mellitus with hyperglycemia, without long-term current use of insulin ([facility]) documented in this encounter Care Teams Wirer Maintenance Relationship Specialty Start Date End Date Emiliana Lopez FNP [address] [place] [address] PCP - General Family Medicine 06/06/24 Ting Lancaster PharmD [address] [place] [address] Pharmacist Pharmacy 01/26/25 [facility] 11/10/24 documented as of this encounter
--- OUTSIDE RECORDS SUMMARY | 2025-02-20 16:07 | XMS_ITS | Encounter Summary ---
Author Organization [employer] Address [address] [facility] 7t [place] [address] Care Team Providers Care Home Care Companion Name Role Phone Emiliana Lopez FASHION JOURNALIST Primary Care Provider [phone] Ting Lancaster PharmD Unavailable [phone] Encounter Details Date Type Department Care Team (Late st Contact Info) Description 10/14/2024 Orders Only [facility] [address] [place], [place] [phone] Emiliana Lopez FNP [address] [place] [address] Social History Tobacco Use Types Packs/Day Years [...] Description 02/25/2025 10:30 AM EDT Office Visit [facility] [address] [place] [address] Emiliana Lopez FNP [address] [place] [address] 03/02/2025 1:30 PM EDT Medication Management [facility] [address] [place] [address] Ting Lancaster PharmD [address] [place] [address] documented as of this encounter Visit Diagnoses Not on filedocumented in this encounter Care Teams Home Care Companion Relationship Specialty Start Date End Date Emiliana Lopez FNP [address] [place] [address] PCP - General Family Medicine 06/06/24 Ting Lancaster PharmD [address] [place] [address] Pharmacist Pharmacy 01/26/25 [facility] 11/10/24 documented as of this encounter
--- OUTSIDE RECORDS SUMMARY | 2025-02-20 16:07 | XMS_ITS | Clinical Summary ---
Author Organization [facility] Address [address] [place] [address] Care Team Providers Care Composition Floor Setter Name Role Phone Unavailable Primary Care Provider Unavailabl e Source Comments PLEASE NOTE, if this patient is a minor, it may be UNLAWFUL to discuss sensitive information that is contained in these records (such as FAMILY PLANNING, MENTAL HEALTH or SUBSTANCE ABUSE) with the minor patient's parent or other person without the patient's specific authorization.[facility] Social History Tobacco Use Types Packs/Day Years Used Date Smoking Tobacco: Never Assessed Sex and Gender Information Value Date Recorded Sex Assigned at Male 12/10/2024 7:32 AM PDT Legal Sex Male 7:32 AM PDT Gender Identity Male 12/10/2024 7:32 AM PDT Sexual Orientation Not on file Plan of Treatment Upcoming Encounters Date Type Department Care Team ([facility] st Contact Info) Description 03/26/2025 1:00 PM EDT Behavioral Health Visit [facility] [address] [place] [phone] Shelbi Arias APRN [address] [place] [address] Health Maintenance Due Date Last Done Comments Anxiety Screening 2000 Hepatitis C Screening 2000 Tobacco Screening 2000 Imm-Varicella (1 of 2 - 13+ 2-dose series) 2013 HIV Screening 2015 Imm-HPV (1 - Male 3-dose series) 2015 Hypertension Screening (#1) 2018 Imm-Hepatitis B (1 of 3 - 19+ 3-dose series) 9 Alcohol and Drug Screen 06/11/2024 Depression Annual Screen 06/11/2024 [id number] ( season) 2025 Imm-Influenza (#1) 2025 Imm-DTaP/Tdap/Td (2 - Td or Tdap) 10/15/2034 025 Insurance [facility]
--- OUTSIDE RECORDS SUMMARY | 2025-02-20 16:07 | XMS_ITS | Encounter Summary ---
Author Organization [employer] Address [address] [facility] 7t [place] [address] Care Team Providers Care Manager Global Communications Name Role Phone Emiliana Lopez GREY GOODS EXAMINER Primary Care Provider [phone] Ting [place] PharmD Unavailable [phone] Reason for Visit * Reason Comments Med Refill Encounter Details Date Type Department Care Team ([facility] st Contact Info) Description 02/18/2025 Refill [facility] [address] [place] [address] Emiliana Lopez FNP [address] [place] [address] Anxiety; Psychosis, unspecified psychosis type (CMS/HCC) Social [...] Description 02/25/2025 10:30 AM EDT Office Visit [facility] [address] [place] [address] Emiliana Lopez FNP [address] [place] [address] 03/02/2025 1:30 PM EDT Medication Management [facility] [address] [place] [address] Ting [place], PharmD 230 [place] [address] documented as of this encounter Visit Diagnoses Diagnosis Anxiety Anxiety state, unspecified Psychosis, unspecified psychosis type (CMS/HCC) documented in this encounter Additional Health Concerns Assessment Noted Time PHQ-9 Depression Total Score: 5 12/02/19 25 2:23 PM EDT documented as of this encounter Care Teams Manager Global Communications Relationship Specialty Start Date End Date Emiliana Lopez FNP [address] [place] [address] PCP - General Family Medicine 06/06/24 Ting [place] PharmD 230 [place] [address] Pharmacist Pharmacy 01/26/25 [facility] 11/10/24 documented as of this encounter
--- OUTSIDE RECORDS SUMMARY | 2025-02-20 16:07 | XMS_ITS ---
Author Organization [employer] Address [address] [facility] 7t [place] [address] Care Team Providers Care Geographic Analyst Name Role Phone JessicaJackelinEmiliana GUNSTOCK SPRAY UNIT FEEDER Primary Care Provider [phone] Ting [place] PharmD Unavailable [phone] CM Complex Status:Enrolled (Active) Start date:08/28/2024 Enrollment [...] Emanuel Garcia RN(Responsible Staff) Registered Jonathon diggs [phone] Continued Care and Services Coordination
--- OUTSIDE RECORDS SUMMARY | 2025-02-20 16:07 | XMS_ITS | Encounter Summary ---
Author Organization [employer] Address [address] [facility] 7t [place] [address] Care Team Providers Care Emergency Crew Supervisor Name Role Phone Emiliana Lopez PATIENT FINANCIAL COUNSELOR Primary Care Provider Ting [place] PharmD Unavailable Reason for Visit * Reason Onset Date Comments FYI 11/05/2024 Encounter Details Date Type Department Care Team ([facility] st Contact Info) Description 11/05/2024 Telephone [facility] [address] [place], [place] [phone] Emiliana Lopez FNP [address] [place] [address] FYI Social History Tobacco Use Types Packs/Day [...] - 11/05/2024 12:24 PM EDT Tc from [facility] with [facility] reporting pt referral for VNA services was accepted. Any questions more than welcome to contact [facility] [phone] documented in this encounter Plan of Treatment Upcoming Encounters Date Type Department Care Team (Late st Contact Info) Description 02/25/2025 10:30 AM EDT Office Visit [facility] [address] [place] [address] Emiliana Lopez FNP [address] [place] [address] 03/02/2025 1:30 PM EDT Medication Management [facility] [address] [place] [address] Ting [place] PharmD [address] [place] [address] documented as of this encounter Visit Diagnoses Not on filedocumented in this encounter Care Teams Emergency Crew Supervisor Relationship Specialty Start Date End Date Emiliana Lopez FNP [address] [place] [address] PCP - General Family Medicine 06/06/24 Ting [place] PharmD 230 [place] [address] Pharmacist Pharmacy 01/26/25 [facility] 11/10/24 documented as of this encounter
[2025-02-20 16:29] LABS: Anion Gap 13 (12-20); Blood Urea Nitrogen 11 mg/dL (9-16); Calcium 9.1 mg/dL (8.4-10.2); Carbon Dioxide 27 mmol/L (22-29); Chloride 105 mmol/L (96-108); Cholesterol 129 mg/dL (<200); Estimated Glomerular Filt Rate > 60; HDL Cholesterol 26 mg/dL (>40); Potassium 4.4 mmol/L (3.3-5.1); Sodium 141 mmol/L (135-145); Triglycerides 343 mg/dL (<150)
[2025-02-20 17:11] LABS: Folate 7.4 ng/mL (> or = 4.0); Vitamin B12 367 pg/mL (200-900)
== END 2025-02-20 13:27 | disposition home or self-care (01) ==
LOC: HO.HHCL 13:26
PROVIDERS: PCP Nurse Practitioner Family; Visit Provider Nurse Practitioner Family
DX: I10 Essential (primary) hypertension (principal); E11.65 Type 2 diabetes mellitus with hyperglycemia
CPT/HCPCS: 36415; 80048; 80061; 82607; 82746

== ENCOUNTER 2025-04-06 14:05 | Outpatient (REF) | payer MEDICAID, SELFPAY ==
--- OUTSIDE RECORDS SUMMARY | 2025-04-06 17:44 | XMS_ITS | Encounter Summary ---
Author Organization [employer] Address 75 [facility] 7t [place] [address] Care Team Providers Care General Agent Name Role Phone Emiliana Lopez Primary Care Provider [phone] Ting [place] PharmD Unavailable [phone] Reason for Visit * Reason Comments Med Refill Encounter Details Date Type Department Care Team ([facility] st Contact Info) Description 02/23/2025 Refill [facility] [address] [place] [address] Emiliana Lopez FNP 230 [place] [address] Social History Tobacco Use Types Packs/Day Years [...] Care Team (Late st Contact Info) Description 04/20/2025 2:30 PM EST Telemedicine [facility] [address] [place] [address] Ting [place], ArleneD [address] [place] [address] documented as of this encounter Visit Diagnoses Not on filedocumented in this encounter Additional Health Concerns Assessment Noted Time PHQ-9 Depression Total Score: 5 12/02/19 25 2:23 PM EDT documented as of this encounter Care Teams General Agent Relationship Specialty Start Date End Date Emiliana Lopez FNP 230 [place] [address] PCP - General Family Medicine 06/06/24 Ting [place], Renu 230 [place] [address] Pharmacist Pharmacy 01/26/25 [facility] 11/10/24 documented as of this encounter
--- OUTSIDE RECORDS SUMMARY | 2025-04-06 17:44 | XMS_ITS | Encounter Summary ---
Author Organization [employer] Address 75 [facility] 7t [place] [address] Care Team Providers Care Director Of Physiotherapy Services Name Role Phone Emiliana Lopez HOOP COILER Primary Care Provider [phone] Ting [place] PharmD Unavailable [phone] Reason for Visit * Reason Onset Date Comments Medication Question 04/02/2025 Encounter Details Date Type Department Care Team ([facility] st Contact Info) Description 04/02/2025 Telephone [facility] [address] [place], [place] [phone] Emiliana Lopez FNP 230 [place] [address] Medication Question Social History Tobacco Use Types Packs/Day Years [...] Telephone Encounter - Geno Hernandes RN - 04/03/2025 1:44 PM EDT T/C returned to mom via S Cost Reduction Engineer Ashly #[id number]. Pt's mom states that pt will no longer allowher to check his blood sugar by fingerstick due to needle phobia. RN attempted to assess for signs and symptoms of hyperglycemia. Mom yelling throughout conversation and unable to answer most questions re: signs and symptoms of hyperglycemia. Mom does reports that pt is having increased confusion. Recommended that mom bring pt to ED now for evaluation. Mom states pt left to go get food and she isalone. States she is sick herself with MS. States she cannot bring pt to ED. Mom again yells that pt will not let her check his blood sugar and requests an appointment next week with pcp. Advised that this RN does understand that she is not able to check pt's blood sugar. Advised that appointment for next week is not appropriate as pt needs to be evaluated today for increased confusion. Advised ED evaluation again. Mom again refuses. Advised of [facility] availability. Mom agrees to bring pt to [facility] tomorrow morning for evaluation Report given to [facility] nurse. * Telephone Encounter - Yulia Duque - 04/02/2025 11:12 AM EDT TC from pt???s mom requesting a prescription for the reader and sensor to check glucose levels. Momstated that the patient tried it once and now does not allow her to check the glucose using the regular machine Contac pt at [phone] documented in this encounter Plan of Treatment Upcoming Encounters Date Type Department Care Team (Late st Contact Info) Description 04/20/2025 2:30 PM EST Telemedicine [facility] [address] [place] [address] Ting [place] PharmD [address] [place] [address] documented as of this encounter Visit Diagnoses Not on filedocumented in this encounter Additional Health Concerns Assessment Noted Time PHQ-9 Depression Total Score: 5 12/02/19 25 2:23 PM EDT documented as of this encounter Care Teams Director Of Physiotherapy Services Relationship Specialty Start Date End Date Emiliana Lopez FNP 230 [place] [address] PCP - General Family Medicine 06/06/24 Ting [place] PharmD [address] [place] [address] Pharmacist Pharmacy 01/26/25 [facility] 11/10/24 documented as of this encounter
--- OUTSIDE RECORDS SUMMARY | 2025-04-06 17:44 | XMS_ITS ---
Author Organization [employer] Address 75 [facility] 7t [place] [address] Care Team Providers Care Swing Saw Operator Name Role Phone Jackelin Lopezupe SURFACING MACHINE OPERATOR Primary Care Provider [phone] Ting [place] PharmD Unavailable [phone] CHW Complex Status:Enrolled (Active) Start date:08/28/2024 Enrollment [...] Team Name Relationship Phone Larisa Duque(Responsible Staff) Continued Care and Services Coordination
--- OUTSIDE RECORDS SUMMARY | 2025-04-06 17:44 | XMS_ITS | Encounter Summary ---
Author Organization [employer] Address [address] [facility] 7t [place] [address] Care Team Providers Care Mail Room Clerk Name Role Phone Emiliana Lopez COSTUME SPECIALIST Primary Care Provider [phone] Ting [place] PharmD Unavailable [phone] Reason for Visit * Reason Comments Med Refill Encounter Details Date Type Department Care Team ([facility] st Contact Info) Description 02/23/2025 Refill [facility] [address] [place], [place] [phone] Hamida Malin NP 230 [place] [address] Type 2 diabetes mellitus with hyperglycemia, without long-term current use of insulin ([facility]) Social History Tobacco Use Types Packs/Day Years [...] Info) Description 04/20/2025 2:30 PM EST Telemedicine [facility] [address] [place] [address] Ting [place], PharmD 230 [place] [address] documented as of this encounter Visit Diagnoses Diagnosis Type 2 diabetes mellitus with hyperglycemia, without long-term current use of insulin (HCC) documented in this encounter Additional Health Concerns Assessment Noted Time PHQ-9 Depression Total Score: 5 12/02/19 25 2:23 PM EDT documented as of this encounter Care Teams Mail Room Clerk Relationship Specialty Start Date End Date Emiliana Lopez FNP [address] [place] [address] PCP - General Family Medicine 06/06/24 Ting [place] PharmD 230 [place] [address] Pharmacist Pharmacy 01/26/25 [facility] 11/10/24 documented as of this encounter
--- OUTSIDE RECORDS SUMMARY | 2025-04-06 17:44 | XMS_ITS | Encounter Summary ---
Author Organization [employer] Address [address] [facility] 7t [place] [address] Care Team Providers Care Landscaper Name Role Phone Emiliana Lopez GAS ANALYST Primary Care Provider [phone] Ting [place] PharmD Unavailable Encounter Details Date Type Department Care Team (Late st Contact Info) Description 10/03/2024 Refill [facility] [address] [place], [place] [phone] Emiliana Lopez FNP [address] [place] [address] Type 2 diabetes mellitus with hyperglycemia, without long-term current use of insulin ([facility]) Social History Tobacco Use Types Packs/Day Years [...] Info) Description 04/20/2025 2:30 PM EST Telemedicine [facility] [address] [place] [address] Ting [place] PharmD [address] [place] [address] documented as of this encounter Visit Diagnoses Diagnosis Type 2 diabetes mellitus with hyperglycemia, without long-term current use of insulin (HCC) documented in this encounter Care Teams Landscaper Relationship Specialty Start Date End Date Emiliana Lopez FNP [address] [place] [address] PCP - General Family Medicine 06/06/24 Ting [place] PharmD [address] [place] [address] Pharmacist Pharmacy 01/26/25 [facility] 11/10/24 documented as of this encounter
--- OUTSIDE RECORDS SUMMARY | 2025-04-06 17:44 | XMS_ITS ---
Author Organization [employer] Address [address] [facility] 7t [place] [address] Care Team Providers Care Employment Specialist/Program Manager Name Role Phone JessicaJackelinEmiliana MARGARINE CHURN OPERATOR Primary Care Provider [phone] Ting [place] PharmD Unavailable [phone] CM Complex Status:Enrolled (Active) Start date:08/28/2024 Enrollment [...] Emanuel Garcia RN(Responsible Staff) Registered Jonathon diggs [phone] Continued Care and Services Coordination
--- OUTSIDE RECORDS SUMMARY | 2025-04-06 17:44 | XMS_ITS | Encounter Summary ---
Author Organization [employer] Address 75 [facility] 7t [place] [address] Care Team Providers Care Manager Corporate Marketing Name Role Phone Emiliana Lopez METAL WIRE TECHNICIAN Primary Care Provider [phone] Ting [place] PharmD Unavailable [phone] Reason for Visit * Reason Onset Date Comments FYI 11/05/2024 Encounter Details Date Type Department Care Team ([facility] st Contact Info) Description 11/05/2024 Telephone [facility] 230 [place], [place] [phone] Emiliana Lopez FNP [address] [place] [address] FYI Social History Tobacco Use Types Packs/Day Years Used Date Smoking Tobacco: Never Passive Smoke Exposure: Never Smokeless Tobacco: Never Alcohol Use Standard Drinks/Week Comments Never 0 (1 standard drink = 0.6 oz pur e alcohol) Housing Stability Answer Date Recorded What is your housing situation today? I have iavn prabha 06/25/[address] you [...] - 11/05/2024 12:24 PM EDT Tc from [facility] with [facility] reporting pt referral for VNA services was accepted. Any questions more than welcome to contact [facility] [phone] documented in this encounter Plan of Treatment Upcoming Encounters Date Type Department Care Team (Late st Contact Info) Description 04/20/2025 2:30 PM EST Telemedicine [facility] MED[facility]INE [address] [place] [address] Ting [place] PharmD [address] [place] [address] documented as of this encounter Visit Diagnoses Not on filedocumented in this encounter Care Teams Manager Corporate Marketing Relationship Specialty Start Date End Date Emiliana Lopez FNP [address] [place] [address] PCP - General Family Medicine 06/06/24 Ting [place] PharmD [address] [place] [address] Pharmacist Pharmacy 01/26/25 [facility] 11/10/24 documented as of this encounter
--- OUTSIDE RECORDS SUMMARY | 2025-04-06 17:44 | XMS_ITS | Encounter Summary ---
Author Organization [employer] Address 75 [facility] 7t [place] [address] Care Team Providers Care Sales And Retail Management Recruiter Name Role Phone Emiliana Lopez LICENSED SALES PRODUCER Primary Care Provider [phone] Ting [place] PharmD Unavailable [phone] Encounter Details Date Type Department Care Team (Late st Contact Info) Description 02/19/2025 Refill [facility] [address] [place], [place] [phone] Emiliana Lopez FNP [address] [place] [address] Anxiety; Psychosis, unspecified psychosis type (CMS/HCC) Social [...] encounter Miscellaneous Notes * Telephone Encounter - BRANDEE Gabriel - 02/26/2025 12:36 PM EDT Approving, but needs appt for additional refills. documented in this encounter Plan of Treatment Upcoming Encounters Date Type Department Care Team (Late st Contact Info) Description 04/20/2025 2:30 PM EST Telemedicine [facility] MED[facility]INE [address] [place] [address] Ting [place], PharmD 230 [place], [place] [phone] documented as of this encounter Visit Diagnoses Diagnosis Anxiety Anxiety state, unspecified Psychosis, unspecified psychosis type (CMS/HCC) (HCC) documented in this encounter Additional Health Concerns Assessment Noted Time PHQ-9 Depression Total Score: 5 12/02/19 25 2:23 PM EDT documented as of this encounter Care Teams Sales And Retail Management Recruiter Relationship Specialty Start Date End Date Emiliana Lopez FNP 230 [place] [address] PCP - General Family Medicine 06/06/24 Ting [place] PharmD 230 [place] [address] Pharmacist Pharmacy 01/26/25 [facility] 11/10/24 documented as of this encounter
--- OUTSIDE RECORDS SUMMARY | 2025-04-06 17:45 | XMS_ITS | Clinical Summary ---
Author Organization [employer] Address [address] [facility] 7[address] [place] [address] Care Team Providers Care Deputy Program Manager Name Role Phone Emiliana Lopez STEEL ERECTING PUSHER Primary Care Provider [phone] Ting Lancaster PharmD Unavailable [phone] Allergies No known active allergies Medications * This document contains information received from the source organization and may not represent a complete record from that organization. Blood Pressure Monitoring (Blood Pressure Cuff) misc 1 Units Once per day. 1 each 4 Active Blood Glucose Monitoring Suppl (FreeStyle Grover Lite) w/Device kit Use to test blood sugar twice daily before breakfast and at bedtime 1 kit 4 Active pen needle 32G x 4 mm misc Use as instructed 100 each 5 07/11/19 26 Active FREESTYLE LITE test strip Use to test blood sugar 3 times daily 100 each 12 5 07/11/19 26 Active TRUEplus Lancets 33G miscIndications: Type 2 diabetes mellitus with hyperglycemia, without long-term current use of insulin (HCC) USE DIRECTED TO CHECK BLOOD SUGAR TWICE DAILY BEFORE BREAKFAST AND BEDTIME 100 each 3 5 Active atorvastatin (Lipitor) 20 MG tablet Take 1 tablet (20 mg) by mouth Once per day. 30 tablet 11 5 10/16/19 26 Active Alcohol Swabs (Alcohol Prep) 70 % pads USE DIRECTED TO CHECK BLOOD SUGAR TWICE DAILY BEFORE BREAKFAST AND BEDTIME 100 each 5 5 Active omeprazole (PriLOSEC) [address] capsuleIndicatio ns:Atypical chest pain TAKE 1 CAPSULE BY MOUTH EVERY MORNING 90 capsule 5 Active Dulaglutide (Trulicity) 4.5 MG/0.5ML solution auto-injector Inject 4.5 mg under the skin 1 (one) time per week. 2 mL 5 Active empagliflozin-me tFORMIN (Synjardy) 5-1000 MG Take 1 tablet by mouth with breakfast and with evening meal. 180 tablet 3 5 01/27/20 26 Active busPIRone (Buspar) 10 MG tabletIndication s:Anxiety TAKE 1 TABLET BY MOUTH TWICE DAILY IN THE MORNING AND AT BEDTIME 60 tablet 1 5 Active QUEtiapine (SEROquel) 25 MG tabletIndication s:Psychosis, unspecified psychosis type ([facility]) ([facility]) TAKE 1 TABLET BY MOUTH AT BEDTIME 30 tablet 1 5 Active losartan (Cozaar) 25 MG tablet TAKE 1 TABLET BY MOUTH EVERY MORNING 90 tablet 1 5 Active levothyroxine (Synthroid, Levoxyl) 25 MCG tablet Take 1 tablet (25 mcg) by mouth before breakfast. 90 tablet 2 5 Active Active Problems Problem Noted Date Diagnosed Date Atypical chest pain 10/18/2024 Encounter for diabetic foot exam 10/18/2024 Class 3 severe obesity due t o excess calories with body mass index (BMI) of 40.0 to 44.9 in adult 10/18/2024 BMI 40.0-44.9, adult ([facility]) 09/02/2024 Dietary counseling 09/02/2024 Exercise counseling 09/02/2024 Anxiety 08/25/2024 Insomnia due to mental condition 06/10/2024 Seizures ([facility]) 06/06/2024 Type 2 diabetes mellitus, wi thout long-term current use of insulin 06/06/2024 Assessment & Plan (06/10/2024 5:35 PM EST): Plan Continue to take your medications as prescribed Check your blood sugar twice daily before breakfast and bedtime, record your readings and bring with you to your next visit Lab order Dietary and exercise counseling Psychotic disorder ([facility]) 06/06/2024 Assessment & Plan (06/09/2024 9:45 AM [...] and psychiatry services when pt lived in [place]. Family moved to [place] in December 2023. Pt is not med compliant, mom requested Longterm Visits to assist with medication concerns. Hx [...] factors using open-ended questions. Provided information for [facility] crisis line. Pt will be refer out for psychiatry services and OP therapy center-base. PCP informed about SN[facility] request to assist pt with medication compliance. Encounters * This document contains information received from the source organization and may not represent a complete record from that organization. Date Type Department Care Team Description 04/02/2025 Telephone [facility] [address] [place] [phone] Emiliana Lopez FNP Medication Question 03/23/2025 Patient Outreach [address] [address] Emiliana Lopez FNP 03/19/2025 Patient Outreach [address] [address] Emiliana Lopez FNP Care Coordination (C3 -[facility] Larisa Duque telephone call outreach) 2025 Patient Outreach [address] [phone] Emiliana Lopez FNP 03/05/2025 Patient Outreach [facility] [address] [place] [address] Okhipo, Emiliana, STEEL ERECTING PUSHER Care Management (C3CM- F/U call # 2) 02/25/2025 10:30 AM EDT Office Visit [facility] [address] [place] [phone] Okhipo, Emiliana, STEEL ERECTING PUSHER Type 2 diabetes mellitus with hyperglycemia, without long-term current use of insulin ([facility]) (Primary Dx); Encounter for diabetic foot exam ([facility]); Well adult health check; Anxiety; Psychosis, unspecified psychosis type ([facility]/HCC) 02/25/2025 Travel 02/24/2025 Telephone [facility] [address] [place] [phone] Carlos Eduardo Conde, [place] CHART PREP 02/23/2025 Refill [facility] [address] [place] [phone] Okhipo, Emiliana, STEEL ERECTING PUSHER 02/23/2025 Refill [facility] [address] [place] [phone] Okhipo, Emiliana, STEEL ERECTING PUSHER 02/23/2025 Refill [facility] [address] [place] [phone] Hamida Malin, KAREEN Type 2 diabetes mellitus with hyperglycemia, without long-term current use of insulin ([facility]) 02/20/2025 Orders Only [facility] [address] [place] [phone] Okhipo, Emiliana, STEEL ERECTING PUSHER 02/20/2025 Refill [facility] [address] [place] [phone] Okhipo, Emiliana, STEEL ERECTING PUSHER 02/19/2025 Refill [facility] [address] [place] [phone] Okhipo, Emiliana, STEEL ERECTING PUSHER Anxiety; Psychosis, unspecified psychosis type (CMS/HCC) 02/18/2025 Refill [facility] [address] [place] [address] Okhipo, Emiliana, STEEL ERECTING PUSHER Anxiety; Psychosis, unspecified psychosis type (CMS/HCC) 02/18/2025 Refill [facility] [address] [place] [address] Ruba Malin DO 02/05/2025 Patient Outreach [facility] [address] [place] [phone] Emiliana Lopez, STEEL ERECTING PUSHER Care Coordination (C3 -[facility] Larisa Duque telephone call ) 02/05/2025 Patient Outreach [facility] [address] [place] [phone] Emiliana Lopez, STEEL ERECTING PUSHER 02/03/2025 Patient Outreach [address] [address] Emiliana Lopez FNP Care Management (C3- Follow up call # 2/LVM) 01/29/2025 Patient Outreach [address] [address] Emiliana Lopez FNP 01/26/2025 Travel 01/12/[address] [address] Emiliana Lopez FNP January01/09/2025 Patient Outreach [address] [address] Pastor Lopeze, STEEL ERECTING PUSHER Care Coordination (C3 -[facility] Larisa Duque telephone call outreach ) 01/06/2025 Refill [facility] [address] [place] [phone] Emiliana Lopez FNP Atypical chest pain from Last 3 Months Immunizations Immunization Administration [...] the past 12 months, has t he C[employer], gas, oil or water company threatened to [...] Sign Reading Time Taken Comments Blood Pressure 128/94 02/25/2025 10:42 AM EDT Pulse 83 02/25/2025 10:42 AM EDT Temperature 36.8 C (98.2 F) 02/25/2025 10:42 AM EDT Respiratory Rate 20 02/25/2025 10:42 AM EDT Oxygen Saturation 95% 02/25/2025 10:42 AM EDT Inhaled Oxygen Concentration - - Weight 133 kg (292 lb 8 oz) 02/25/2025 10:42 AM EDT Height 180 cm (5' 10.87 ) 02/25/2025 10:42 AM ED T Body Mass Index 40.95 02/25/2025 10:42 AM EDT Plan of Treatment Upcoming Encounters Date Type Department Care Team (Late st Contact Info) Description 04/20/2025 2:30 PM EST Telemedicine [facility] [address] [place], [place] [phone] Ting Lancaster, PharmD [address] [place], [place] [phone] Health Maintenance Due Date Last Done Comments HIV Screening 2000 Eye Exam 2010 Family Planning (PISQ) 2015 HPV Vaccines (1 - Male 3-dose series) 2015 Hepatitis C Screening 2018 Hepatitis B Vaccines (1 of 3 - 19+ 3-dose series) 2019 COVID-19 Vaccine ( season) 2025 Influenza Vaccine (#1) 2025 Diabetes: Hemoglobin A1C 04/28/20252 025, 10/15/2024, 08/27/2024, Additional history exists Alcohol/Substance Use Screening 06/06/2025 06/06/2024 Diabetes: Urine Protein Screening 06/09/2025 06/09/2024 SDOH Screening 06/25/2025 06/25/2024 Disability Screening 10/15/2025 10/15/2024 Depression Screening 12/01/2025 12/01/2024, 12/02/19 Lipid Panel 02/20/2026 02/20/2025, 05/0 12/2024, 08/28/2024 Diabetes: Foot Exam 02/25/2026 02/25/2025, 02/25/2025, 02/25/2025, Additional history exists Tobacco Screening 02/25/2026 02/25/2025 DTaP/Tdap/Td Vaccines (2 - Td or Tdap) [...] Name Priority Date/Time Associated Diagnosis Comments POCT GLUCOSE Routine 02/25/2025 10:44 AM EDT Type 2 diabetes mellitus with hyperglycemia, without long-term current use of insulin ([facility]) VITAMIN B12/FOLATE, SERUM PANEL Routine 02/20/2025 1:33 PM EDT LIPID PANEL, STANDARD Routine 02/20/2025 1:33 PM EDT BASIC METABOLIC PANEL Routine 02/20/2025 1:33 PM EDT POCT GLYCATED HEMOGLOBIN, TOTAL Routine 01/26/2025 1:44 PM EDT Type 2 diabetes mellitus with hyperglycemia, without long-term current use of insulin ([facility]) ALBUMIN, RANDOM URINE W/CREATININE Routine 06/09/2024 1:27 PM EST Adult wellness visit Type 2 diabetes mellitus with hyperglycemia, without long-term current use of insulin ([facility]) from Last 3 Months or Most Recently Relevant to Health Maintenance Results * POCT Glucose (02/25/2025 10:44 AM EDT) Glucose Blood, POC 191 60 - 200 mg/dL QC Media Lot # [id number] Lot# Expiration Date 3 Blood Capillary blood specimen / Unknown 02/25/2025 10:44 AM EDT [facility] POINT OF CARE TEST ENTER/EDIT ORDERABLES Final Result * Vitamin B12 (Cobalamin) and Folate Panel, Serum (02/20/2025 1:33 PM EDT) Vitamin B12 367 200 - 900 pg/mL [facility] Comment:NORMAL 200-900 PG/ML INDETERMINATE 160-199 PG/ML DEFICIENT < 160 PG/ML Folate 7.4 > or = 4.0 ng/mL [facility] Comment:Reference Values:> o r = 4.0 ng/mL< 4.0 ng/mL suggests folate deficiency Methotrexate, aminopterin and folinic acid(leucovorin) are chemotherapeutic agents whose molecularstructures are similar to folate; therefore, the Architectfolate assay cannot be used for patients using these drugs. 02/20/2025 1:33 PM EDT 02/20/2025 4:01 PM EDT [facility] LAB BLOOD ORDERABLES Final Res ult [facility] [address] [place] [phone] [phone] * (ABNORMAL) Lipid Panel, Standard (02/20/2025 1:33 PM EDT) Triglycerides 343(H) <150 mg/dL [facility] Comment:Desirable Triglyceri de: less than 150 mg/dLBorderline High Triglyceride 150-199 mg/dLHigh Triglyceride: 200-499 mg/dLVery High Triglyceride: greater than or equal to 5OO mg/dL Cholesterol 129 <200 mg/dL [facility] Comment:Desirable Cholestero l: less than 200 mg/dLBorderline High Cholesterol: 200-239 mg/dLHigh Cholesterol: greater than 239 mg/dL LDL Cholesterol Calculated 35 <100 mg/dL [facility] Comment:Desirable LDL: less than 100 mg/dLNear Optimal/Above Optimal LDL: 110- 129 mg/dLBorderline High LDL: 130-159 mg/dLHigh LDL: 160-189 mg/dLVery High LDL: greater than or equal to 190 mg/dL HDL Cholesterol 26(L) >40 mg/dL [facility] Comment:Desirable HDL: great er than 40 mg/dL Note: This HDL assay may give artificially low results in patients with liver disease. 02/20/2025 1:33 PM EDT 02/20/2025 4:01 PM EDT us Emiliana Lopez [employer] E[employer]ING PUSHER LAB BLOOD ORDERABLES Final Res ult [facility] [address] [place] [phone] * (ABNORMAL) Basic Metabolic Panel (02/20/2025 1:33 PM EDT) Sodium 141 135 - 145 mmol/L [facility] Potassium 4.4 3.3 - 5.1 mmol/L [facility] Chloride 105 96 - 108 mmol/L [facility] Carbon Dioxide 27 22 - 29 mmol/L [facility] Anion Gap 13 12 - 20 [facility] Urea Nitrogen (BUN) 11 9 - 16 mg/dL [facility] Creatinine, Serum 0.75 0.5 - 1.4 mg/dL [facility] Estimated Glomerular Filt Rate >60 [facility] Comment:Chronic Kidney Disea se: Estimated GFR < 60 mL/min/1.35s5Acmnyr Kidney Disease: Estimated GFR < 15 mL/min/1.73m2 Glucose 177(H) 60 - 115 mg/dL [facility] Calcium 9.1 8.4 - 10.2 mg/dL [facility] 02/20/2025 1:33 PM EDT 02/20/2025 4:01 PM EDT Emilianaradha Lopez [facility] LAB BLOOD ORDERABLES Final Res ult Performing Organization Address [facility] Co de Phone Number [facility] [address] [place] [phone] * (ABNORMAL) POCT A1c (01/26/2025 1:44 PM EDT) Hemoglobin A1C 9.1(A) 4.0 - 5.7 % QC Media Lot # [id number] Lot# Expiration Date Blood 01/26/2025 1:44 PM EDT Emilianaradha Pearceo [facility] POINT OF CARE TEST ENTER/EDIT ORDERABLES Final Result * (ABNORMAL) Albumin, Random Urine W/Creatinine (06/09/2024 1:27 PM EST) Creatinine, Urine 97.63 mg/dL [facility] Microalbumin Urine 40.0 mg/L [facility] Microalbum Creatinine Ratio Ur 40.9(H) <30 ug/mg cr [facility] Comment:Albumin/Creatinine R at Reference Ranges: Normal: < 30 ug/mg creatinine Microalbuminuria: 30 - 300 ug/mg creatinineClinical Albuminuria: > 300 ug/mg creatinine Urine (Urine, Random) 06/09/2024 1:27 PM EST 06/09/2024 5:29 PM EST Emilianaradha Pearceo [facility] LAB URINE ORDERABLES Final Res ult Performing Organization Address [facility]/ZIP Co de Phone Number [facility] [address] [place] [phone] from Last 3 Months or Most Recently Relevant to Health Maintenance Insurance [facility] C3 Care Teams Deputy Program Manager Relationship Specialty Start Date End Date Emiliana Lopez FNP [address] [place] [address] PCP - General Family Medicine 06/06/24 Ting Lancaster PharmD [address] [place] [address] Pharmacist Pharmacy 01/26/25 [facility] 11/10/24
--- OUTSIDE RECORDS SUMMARY | 2025-04-06 17:45 | XMS_ITS | Encounter Summary ---
Author Organization [employer] Address [address] [facility] 7[address] [place] [address] Care Team Providers Care Regional Guide Name Role Phone Emiliana Lopez PAPER COLORER Primary Care Provider [phone] Ting Lancaster PharmD Unavailable [phone] Encounter Details Date Type Department Care Team (Late st Contact Info) Description 10/14/[address] [facility] [address] [place], [place] [phone] Emiliana Lopez FNP [address] [place] [address] Social History Tobacco Use Types Packs/Day Years [...] 10/15/2024 10:54 AM EDT Larisa Walker [place] FOLRY-7 Total Score 0 10/15/2024 10:54 AM EDT Larisa Blake [place] documented as of this encounter Plan of Treatment Upcoming Encounters Date Type Department Care Team (Late st Contact Info) Description 04/20/2025 2:[address] [facility] [address] [place] [address] Ting Lancaster, PharmD [address] [place] [address] documented as of this encounter Visit Diagnoses Not on filedocumented in this encounter Care Teams Regional Guide Relationship Specialty Start Date End Date Emiliana Lopez FNP [address] [place] [address] PCP - General Family Medicine 06/06/24 Ting Lancaster PharmD [address] [place] [address] Pharmacist Pharmacy 01/26/25 [facility] 11/10/24 documented as of this encounter
--- OUTSIDE RECORDS SUMMARY | 2025-04-06 17:45 | XMS_ITS | Encounter Summary ---
Author Organization [employer] Address [address] [facility] [address] [place] [address] Care Team Providers Care Rn Circulating Name Role Phone Emiliana Lopez THERMAL TECHNICIAN Primary Care Provider [phone] Ting Lancaster PharmD Unavailable [phone] Reason for Visit * Reason Onset Date Comments Appointment Request 10/23/2024 Encounter Details Date Type Department Care Team ([facility] [place] [facility] st Contact Info) Description 10/23/2024 Telephone [facility] [address] [place], [place] [phone] Emiliana Lopez FNP [address] [place] [address] Appointment Request Social History Tobacco Use Types [...] Info) Description 04/20/2025 2:30 PM EST Telemedicine [facility] [address] [place] [address] Ting Lancaster PharmD [address] [place] [address] documented as of this encounter Visit Diagnoses Not on filedocumented in this encounter Care Teams Rn Circulating Relationship Specialty Start Date End Date Emiliana Lopez FNP [address] [place] [phone] PCP - General Family Medicine 06/06/24 Ting Lancaster PharmD [address] [place] [phone] Pharmacist Pharmacy 01/26/25 [facility] 11/10/24 documented as of this encounter
[2025-04-07 03:50] LABS: HBS Num1 66.88 mIU/mL (0-7.99); HBc Num1 0.07 S/CO (0.00-0.79); HBsAGNum1 0.42 S/CO (0.00-0.99); HIV Num 1 0.06 S/CO (0.00-0.99); Hepatitis B Surface Antigen Negative (Negative); ~HepC Num1 0.14 S/CO (0.00-0.79); ~Hepatitis B Surface Antibody REACTIVE (Nonreactive); ~Hepatitis C Antibody Nonreactive (Nonreactive)
== END 2025-04-06 14:06 | disposition home or self-care (01) ==
LOC: HO.HHCL 14:05
PROVIDERS: PCP Nurse Practitioner Family; Visit Provider Nurse Practitioner Family
DX: Z00.00 Encounter for general adult medical examination without abnormal findings (principal); Z11.59 Encounter for screening for other viral diseases; Z11.4 Encounter for screening for human immunodeficiency virus [HIV]
CPT/HCPCS: 36415; 86704; 86706; 86803; 87340; 87389

== ENCOUNTER 2025-04-16 13:56 | Outpatient (AMB) | payer MEDICAID, SELFPAY ==
--- NOTE | 2025-04-16 13:58 | MHC.OFFVIS ---
Vital Signs 04/16/25 13:59 Height 5 ft 10 in Weight 283 lb 15.286 oz BMI 40.7 BP 132/80 Blood Pressure Location Lt brachial Position Sitting Pulse 85 Pulse Source Monitor Intake Visit Reasons: YARD BRAKEMAN/BRANDEE Gabriel/Chest pain Director Of Hemophilia Required: Yes Director Of Hemophilia Name: yina be - [phone] Stefan Accompanied by: Mother Allergies No Known Allergies Allergy (Verified 04/16/25 14:08) Medication List - Last Reconciled 04/16/25 by Harvinder Damon NP acetaminophen 650 mg (2 x 325 mg) PO Q6H PRN dulaglutide (Trulicity) mg subcut QWEEK glimepiride 4 mg PO QAM levothyroxine 25 mcg PO QAM quetiapine 25 mg PO BEDTIME HPI Comments Details: This is a 25-year-old male patient new to our office referred by PCP for evaluation of chest pain. 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 Patient with a history of seizures, obesity, and developmental delay who is here today with his mother. Patient with no known history of coronary artery disease, ischemic heart disease, or cardiomyopathy. Patient states that he has been having chest pain for over a year and notices it mostly at rest specially when laying down. Patient states that the symptoms have not changed for the year. Patient is denying any associated symptoms of shortness of breath, palpitations, dizziness, orthopnea, PND, leg edema, presyncope or syncope. A charge auditor was used for the mother who gave us most of the history otherwise patient does appropriately report his symptoms. The mom does note that the family has a strong history of heart failure. [facility] Medical History Chronic static encephalopathy Cognitive developmental delay Diabetes Seizures Family History Maternal Grandmother CHF (congestive heart failure) Father Heart problem Social History Patient Tobacco Use Status: Never used Tobacco Review of Systems Const Denies daytime sleepiness, Denies difficulty sleeping, Denies snoring, Denies stops breathing during sleep and Denies weakness Card Denies chest pain, Denies rapid heart rate, Denies irregular heart rhythm, Denies claudication, Denies leg edema, Denies lightheadedness, Denies palpitations, Denies dyspnea, Denies dyspnea on exertion, Denies orthopnea, Denies paroxysmal nocturnal dyspnea and Denies slow heart rate Resp Denies cough, Denies dyspnea, Denies dyspnea on exertion and Denies snoring GI Reports no additional complaints, Denies hematochezia, Denies change in stool character and Denies dyspepsia Musc Denies abnormal gait, Denies muscle weakness and Denies numbness Neuro Denies abnormal gait, Denies numbness and Denies weakness Endo Denies palpitations Physical Exam Vital Signs: Last Vital Signs Pulse 85 04/16/25 13:59 BP 132/80 04/16/25 13:59 BMI result Body Mass Index 40.7 Const General: cooperative, healthy appearing, comfortable and no acute distress Orientation/consciousness: patient oriented x3 HEENT Head: Yes normal to inspection Neck Neck: Yes normal visual inspection, Yes trachea midline and Yes supple Chest Chest palpation & inspection: normal inspection of the chest Resp Effort & Inspection: normal respiratory effort Auscultation: clear to auscultation bilaterally, no crackles, no rales, no rhonchi and no wheezes Cardio Jugular venous distension: no JVD Palpation: normal PMI Rate: regular rate Rhythm: regular rhythm Heart sounds: S1 normal heart sound present, S2 normal heart sound present, no click, no gallops, no murmurs and no rubs Peripheral pulses: Peripheral pulses 2+ throughout GI Inspection: Yes normal to inspection Palpation (GI): Soft to palpation Auscultation: normal bowel sounds Skin General skin exam: no rashes or lesions noted Neuro General: patient oriented x3 Extrem General: Yes normal to inspection, No no pedal edema and No calf tenderness Psych Appearance: grossly normal Mental Status: mental status grossly normal Speech and movement: Normal speech and movement present Office Procedures EKG Details: EKG today showed normal sinus rhythm, rate 85 beats per minute, nonspecific STT wave, normal [place], [place]. [id number]-[id number], Complete Assessment & Plan Assessment & Plan (1) Chest pain: Code(s): R07.9 - Chest pain, unspecified Category: Medical Plan: Patient's symptoms are very atypical in nature however given his risk factors, we will get an echo to look for LV dysfunction as well as valvular pathology. We will also obtain a treadmill stress test which patient states he is able to do to assess for ischemic changes. Further testing based on findings. Advised heart healthy diet, regular exercise, losing weight, med compliance, and management of vascular risk factors. Follow up after testings. In the interim, patient will call the office with any concerns or change in symptoms. Advised to seek ER care in case of exertional chest pain not resolved with rest. This note was generated using voice recognition software. While every effort has been made to ensure accuracy and proper hospital insurance clerk, there may be occasional errors that could affect the content or meaning of the described symptoms. Orders: Orders AMB EKG-In Office Today R07.9 - Chest pain, unspecified CA stress test Today R07.9 - Chest pain, unspecified CA echo transthoracic complete Today R07.9 - Chest pain, unspecified Coding Level of Care Code New Pt Level 3 (47177) Complex EM visit Add On G2211 Diagnoses Chest pain R07.9 CPT Codes EKG - CPT: 74203-[id number], Complete ([id number]) Time Spent (min) 29 Comment Time spent in reviewing the chart, test results, assessment, counseling and documentation.
[2025-04-16 13:59] VITALS: BP 132/80; PULSE 85; BMI 40.7
--- OUTSIDE RECORDS SUMMARY | 2025-04-16 17:02 | XMS_ITS | Encounter Summary ---
Author Organization [employer] Address 75 [facility] 7t [place] [address] Care Team Providers Care Supervisor Stone Name Role Phone Emiliana Lopez Primary Care Provider [phone] Ting Lancaster PharmD Unavailable [phone] Reason for Visit * Reason Comments Med Refill Encounter Details Date Type Department Care Team ([facility] st Contact Info) Description 02/23/2025 Refill [facility] [address] [place] [address] Emiliana Lopez FNP [address] [place] [address] Social History Tobacco Use Types Packs/Day Years [...] Info) Description 04/20/2025 2:30 PM EST Telemedicine [facility] MED[facility]INE [address] [place] [address] Ting Lancaster, ArleneD [address] [place] [address] documented as of this encounter Visit Diagnoses Not on filedocumented in this encounter Additional Health Concerns Assessment Noted Time PHQ-9 Depression Total Score: 5 12/02/19 25 2:23 PM EDT documented as of this encounter Care Teams Supervisor Stone Relationship Specialty Start Date End Date Emiliana Lopez FNP [address] [place] [address] PCP - General Family Medicine 06/06/24 Ting Lancaster, Renu [address] [place] [address] Pharmacist Pharmacy 01/26/25 [facility] 11/10/24 documented as of this encounter
--- OUTSIDE RECORDS SUMMARY | 2025-04-16 17:02 | XMS_ITS | Encounter Summary ---
Author Organization [employer] Address 75 [facility] 7t [place] [address] Care Team Providers Care Nuclear Technician Name Role Phone Emiliana Lopez BIOPROCESS ENGINEER Primary Care Provider [phone] Ting Lancaster PharmD Unavailable [phone] Reason for Visit * Reason Onset Date Comments FYI 11/05/2024 Encounter Details Date Type Department Care Team ([facility] st Contact Info) Description 11/05/2024 Telephone [facility] [address] [place], [place] [phone] Emiliana Lopez FNP [address] [place] [address] FYI Social History Tobacco Use Types Packs/Day [...] - 11/05/2024 12:24 PM EDT Tc from [facility] with [facility] reporting pt referral for VNA services was accepted. Any questions more than welcome to contact [facility] [phone] documented in this encounter Plan of Treatment Upcoming Encounters Date Type Department Care Team (Late st Contact Info) Description 04/20/2025 2:30 PM EST Telemedicine [facility] MED[facility] [address] [place] [address] Ting Lancaster PharmD [address] [place] [address] documented as of this encounter Visit Diagnoses Not on filedocumented in this encounter Care Teams Nuclear Technician Relationship Specialty Start Date End Date Emiliana Lopez FNP [address] [place] [address] PCP - General Family Medicine 06/06/24 Ting Lancaster PharmD [address] [place] [phone] Pharmacist Pharmacy 01/26/25 [facility] 11/10/24 documented as of this encounter
--- OUTSIDE RECORDS SUMMARY | 2025-04-16 17:02 | XMS_ITS | Encounter Summary ---
Author Organization [employer] Address 75 [facility] 7t [place] [address] Care Team Providers Care Financial Services Education Consultant Name Role Phone Emiliana Lopez OTR OWNER OPERATOR Primary Care Provider [phone] Ting Lancaster PharmD Unavailable [phone] Encounter Details Date Type Department Care Team (Late st Contact Info) Description 10/14/2024 Orders Only [facility] MEDICINE [address] [place], [place] [phone] Emiliana Lopez FNP [address] [place] [address] Social History Tobacco Use Types Packs/Day Years [...] Info) Description 04/20/2025 2:30 PM EST Telemedicine [facility] MEDICINE [address] [place] [address] Ting Lancaster, PharmD [address] [place] [address] documented as of this encounter Visit Diagnoses Not on filedocumented in this encounter Care Teams Financial Services Education Consultant Relationship Specialty Start Date End Date Emiliana Lopez FNP [address] [place] [address] PCP - General Family Medicine 06/06/24 Ting Lancaster PharmD [address] [place] [address] Pharmacist Pharmacy 01/26/25 [facility] 11/10/24 documented as of this encounter
--- OUTSIDE RECORDS SUMMARY | 2025-04-16 17:02 | XMS_ITS ---
Author Organization [employer] Address 75 [facility] 7t [place] [address] Care Team Providers Care Compression Molding Machine Setter Name Role Phone MichaeljanedaveJackelinEmiliana TELEVISION CABLE INSTALLER Primary Care Provider [phone] Tnig Lancaster PharmD Unavailable [phone] CM Complex Status:Enrolled (Active) Start date:08/28/2024 Enrollment [...] Emanuel Garcia RN(Responsible Staff) Registered Jonathon diggs [phone] Continued Care and Services Coordination
--- OUTSIDE RECORDS SUMMARY | 2025-04-16 17:02 | XMS_ITS | Encounter Summary ---
Author Organization [employer] Address 75 [facility] 7t [place] [address] Care Team Providers Care Kettle Coordinator Name Role Phone Emiliana Lopez PRINTING MACHINE MECHANIC Primary Care Provider [phone] Ting Lancaster PharmD Unavailable [phone] Encounter Details Date Type Department Care Team (Late st Contact Info) Description 04/16/2025 Refill [facility] MEDICINE [address] [place] [address] Emiliana Lopez FNP [address] [place] [address] Atypical chest pain Social History Tobacco Use Types Packs/Day Years [...] Info) Description 04/20/2025 2:30 PM EST Telemedicine [facility] MEDICINE [address] [place] [address] Ting Lancaster, ArleneD [address] [place] [address] documented as of this encounter Visit Diagnoses Diagnosis Atypical chest pain Other chest pain documented in this encounter Additional Health Concerns Assessment Noted Time PHQ-9 Depression Total Score: 5 12/02/19 25 2:23 PM EDT documented as of this encounter Care Teams Kettle Coordinator Relationship Specialty Start Date End Date Emiliana Lopez FNP [address] [place] [address] PCP - General Family Medicine 06/06/24 Ting Lancaster, ArleneD [address] [place], [place] [address] [phone] Pharmacist Pharmacy 01/26/25 [facility] 11/10/24 documented as of this encounter
--- OUTSIDE RECORDS SUMMARY | 2025-04-16 17:02 | XMS_ITS | Encounter Summary ---
Author Organization [employer] Address 75 [facility] 7t [place] [address] Care Team Providers Care Twisting Frame Fixer Name Role Phone Emiliana Lopez RADIOLOGIC TECHNOLOGY TEACHER Primary Care Provider [phone] Ting Lancaster PharmD Unavailable [phone] Encounter Details Date Type Department Care Team (Late st Contact Info) Description 02/19/2025 Refill [facility] MED[facility]INE [address] [place], [place] [phone] Emiliana Lopez FNP [address] [place] [address] Anxiety; Psychosis, unspecified psychosis type (CMS/HCC) Social [...] EST Telemedicine [facility] MEDICINE [address] [place] [address] Ting Lancaster, PharmD [address] [place], [place] [phone] documented as of this encounter Visit Diagnoses Diagnosis Anxiety Anxiety state, unspecified Psychosis, unspecified psychosis type (CMS/HCC) (HCC) documented in this encounter Additional Health Concerns Assessment Noted Time PHQ-9 Depression Total Score: 5 12/02/19 25 2:23 PM EDT documented as of this encounter Care Teams Twisting Frame Fixer Relationship Specialty Start Date End Date Emiliana Lopez FNP [address] [place] [address] PCP - General Family Medicine 06/06/24 Ting Lancaster PharmD [address] [place] [address] Pharmacist Pharmacy 01/26/25 [facility] 11/10/24 documented as of this encounter
--- OUTSIDE RECORDS SUMMARY | 2025-04-16 17:02 | XMS_ITS | Encounter Summary ---
Author Organization [employer] Address 75 [facility] 7t [place] [address] Care Team Providers Care Strategic Planning Manager Name Role Phone Emiliana Lopez KEY ACCOUNT REPRESENTATIVE Primary Care Provider [phone] Ting Lancaster PharmD Unavailable [phone] Encounter Details Date Type Department Care Team (Late st Contact Info) Description 10/03/2024 Refill [facility] MEDICINE [address] [place], [place] [phone] Emiliana Lopez FNP [address] [place] [address] Type 2 diabetes mellitus with hyperglycemia, without long-term current use of insulin ([facility]) Social History Tobacco Use Types [...] Description 04/20/2025 2:30 PM EST Telemedicine [facility] MEDICINE [address] [place] [address] Ting Lancaster PharmD [address] [place] [address] documented as of this encounter Visit Diagnoses Diagnosis Type 2 diabetes mellitus with hyperglycemia, without long-term current use of insulin (HCC) documented in this encounter Care Teams Strategic Planning Manager Relationship Specialty Start Date End Date Emiliana Lopez FNP [address] [place] [address] PCP - General Family Medicine 06/06/24 Ting Lancaster PharmD [address] [place] [phone] Pharmacist Pharmacy 01/26/25 [facility] 11/10/24 documented as of this encounter
--- OUTSIDE RECORDS SUMMARY | 2025-04-16 17:02 | XMS_ITS | Encounter Summary ---
Author Organization [employer] Address 75 [facility] 7t [place] [address] Care Team Providers Care Dining Room Supervisor Name Role Phone Emiliana Lopez DIE ENGRAVING SUPERVISOR Primary Care Provider [phone] Ting Lancaster PharmD Unavailable [phone] Reason for Visit * Reason Comments Med Refill Encounter Details Date Type Department Care Team ([facility] st Contact Info) Description 02/23/2025 Refill [facility] [address] [place], [place] [phone] Hamida Malin NP [address] [place] [address] Type 2 diabetes mellitus with hyperglycemia, without long-term current use of insulin ([facility]) Social History Tobacco Use Types [...] Info) Description 04/20/2025 2:30 PM EST Telemedicine [facility]INE [address] [place] [address] Ting Lancaster, PharmD [address] [place] [address] documented as of this encounter Visit Diagnoses Diagnosis Type 2 diabetes mellitus with hyperglycemia, without long-term current use of insulin (HCC) documented in this encounter Additional Health Concerns Assessment Noted Time PHQ-9 Depression Total Score: 5 12/02/19 25 2:23 PM EDT documented as of this encounter Care Teams Dining Room Supervisor Relationship Specialty Start Date End Date Emiliana Lopez FNP [address] [place] [address] PCP - General Family Medicine 06/06/24 Ting Lancaster PharmD [address] [place] [address] Pharmacist Pharmacy 01/26/25 [facility] 11/10/24 documented as of this encounter
--- OUTSIDE RECORDS SUMMARY | 2025-04-16 17:02 | XMS_ITS | Encounter Summary ---
Author Organization [employer] Address 75 [facility] 7t [place] [address] Care Team Providers Care Concrete Tile Machine Operator Name Role Phone Emiliana Lopez CHIEF OF HOSPITAL MEDICINE Primary Care Provider [phone] Ting Lancaster PharmD Unavailable [phone] Reason for Visit * Reason Comments Med Refill Encounter Details Date Type Department Care Team ([facility] st Contact Info) Description 04/09/2025 Refill [facility] [address] [place] [address] Emiliana Lopez FNP [address] [place] [address] Anxiety; Psychosis, unspecified psychosis type (CMS/HCC) (HCC) Social History Tobacco Use Types Packs/Day Years [...] Info) Description 04/20/2025 2:30 PM EST Telemedicine [facility] MEDICINE 230 [place] [address] Ting Lancaster, PharmD [address] [place] [address] documented as of this encounter Visit Diagnoses Diagnosis Anxiety Anxiety state, unspecified Psychosis, unspecified psychosis type (CMS/HCC) (HCC) documented in this encounter Additional Health Concerns Assessment Noted Time PHQ-9 Depression Total Score: 5 12/02/19 25 2:23 PM EDT documented as of this encounter Care Teams Concrete Tile Machine Operator Relationship Specialty Start Date End Date Emiliana Lopez FNP [address] [place] [address] PCP - General Family Medicine 06/06/24 Ting Lancaster PharmD 230 [place] [address] Pharmacist Pharmacy 01/26/25 [facility] 11/10/24 documented as of this encounter
--- OUTSIDE RECORDS SUMMARY | 2025-04-16 17:02 | XMS_ITS | Encounter Summary ---
Author Organization [employer] Address 75 [facility] 7t [place] [address] Care Team Providers Care Supervisor Microbiology Technologists Name Role Phone Emiliana Lopez ACCOUNT MANAGER SALES REPRESENTATIVE Primary Care Provider [phone] Ting Lancaster PharmD Unavailable [phone] Reason for Visit * Reason Onset Date Comments Appointment Request 10/23/2024 Encounter Details Date Type Department Care Team ([facility] st Contact Info) Description 10/23/2024 Telephone [facility] MEDICINE [address] [place], [place] [phone] Emiliana Lopez FNP [address] [place] [address] Appointment Request Social History Tobacco Use Types [...] Info) Description 04/20/2025 2:30 PM EST Telemedicine [facility] [address] [place] [address] Ting Lancaster PharmD [address] [place] [address] documented as of this encounter Visit Diagnoses Not on filedocumented in this encounter Care Teams Supervisor Microbiology Technologists Relationship Specialty Start Date End Date Emiliana Lopez FNP [address] [place] [address] PCP - General Family Medicine 06/06/24 Ting Lancaster PharmD [address] [place] [address] Pharmacist Pharmacy 01/26/25 [facility] 11/10/24 documented as of this encounter
--- OUTSIDE RECORDS SUMMARY | 2025-04-16 17:02 | XMS_ITS | Clinical Summary ---
Author Organization [employer] Address [address] [facility] [address] [place] [address] Care Team Providers Care Guitar Maker Hand Name Role Phone Emiliana Lopez TEXTILE BAG SEWER Primary Care Provider [phone] Ting Lancaster PharmD Unavailable [phone] Allergies No known active allergies Medications * This document contains information received from the source organization and may not represent a complete record from that organization. Blood Pressure Monitoring (Blood Pressure Cuff) misc 1 Units Once per day. 1 each 06/06/20 24 Active Blood Glucose Monitoring Suppl (FreeStyle [place] Lite) w/Device kit Use to test blood sugar twice daily before breakfast and at bedtime 1 kit 06/06/20 24 Active pen needle 32G x 4 mm misc Use as instructed 100 each 07/11/19 25 026 Active FREESTYLE LITE test strip Use to test blood sugar 3 times daily 100 each 12 07/11/19 25 026 Active TRUEplus Lancets 33G miscIndications :Type 2 [...] BEDTIME 100 each 5 10/19/19 25 Active omeprazole (PriLOSEC) [address] capsuleIndicati ons:Atypical chest pain TAKE 1 CAPSULE BY MOUTH EVERY MORNING 90 capsule 01/10/20 25 Active Dulaglutide (Trulicity) 4.5 MG/0.5ML solution auto-injector Inject 4.5 mg under the skin 1 (one) time per week. 2 mL 11 01/27/20 25 Active empagliflozin-m etFORMIN (Synjardy) 5-1000 MG Take 1 tablet by mouth with breakfast and with evening meal. 180 tablet 3 01/27/20 25 026 Active losartan (Cozaar) 25 MG tablet TAKE 1 TABLET BY MOUTH EVERY MORNING 90 tablet 1 02/20/20 25 Active levothyroxine (Synthroid, Levoxyl) 25 MCG tablet Take 1 tablet (25 mcg) by mouth before breakfast. 90 tablet 2 02/24/20 25 Active busPIRone (Buspar) 10 MG tabletIndicatio ns:Anxiety TWICE DAILY IN THE MORNING AND AT BEDTIME 60 tablet 1 04/15/20 25 Active QUEtiapine (SEROquel) 25 MG tabletIndicatio ns:Psychosis, unspecified psychosis type (CMS/HCC) ([facility]) TAKE 1 TABLET BY MOUTH AT BEDTIME 30 tablet 1 04/15/20 25 Active busPIRone (Buspar) 10 MG tabletIndicatio ns:Anxiety TAKE 1 TABLET BY MOUTH TWICE DAILY IN THE MORNING AND AT BEDTIME 60 tablet 1 02/20/20 25 025 Discontinued QUEtiapine (SEROquel) 25 MG tabletIndicatio ns:Psychosis, unspecified psychosis type (CMS/HCC) ([facility]) TAKE 1 TABLET BY MOUTH AT BEDTIME 30 tablet 1 02/20/20 25 025 Discontinued Active Problems Problem Noted Date Diagnosed Date Atypical chest pain 10/18/2024 Encounter for diabetic foot exam 10/18/2024 Class 3 severe obesity due t o excess calories with body mass index (BMI) of 40.0 to 44.9 in adult 10/18/2024 BMI 40.0-44.9, adult ([facility]) 09/02/2024 Dietary counseling 09/02/2024 Exercise counseling 09/02/2024 Anxiety 08/25/2024 Insomnia due to mental condition 06/10/2024 Seizures ([facility]) 06/06/2024 Type 2 diabetes mellitus, wi thout long-term current use of insulin 06/06/2024 Assessment & Plan (06/10/2024 5:35 PM EST): Plan Continue to take your medications as prescribed Check your blood sugar twice daily before breakfast and bedtime, record your readings and bring with you to your next visit Lab order Dietary and exercise counseling Psychotic disorder (CMS/HCC) 06/06/2024 Assessment & Plan (06/09/2024 9:45 AM [...] and psychiatry services when pt lived in [place]. Family moved to [place] in December 2023. Pt is not med compliant, mom requested [facility] Visits to assist with medication concerns. Hx [...] factors using open-ended questions. Provided information for [facility] crisis line. Pt will be refer out for psychiatry services and OP therapy center-base. PCP informed about [facility] request to assist pt with medication compliance. Encounters * This document contains information received from the source organization and may not represent a complete record from that organization. Date Type Department Care Team Description 04/16/2025 Refill [facility] [address] [place] [address] Pastor Lopeze, TEXTILE BAG SEWER Atypical chest pain 04/09/2025 Refill [facility] [address] [place] [address] Emiliana Lopez, TEXTILE BAG SEWER Anxiety; Psychosis, unspecified psychosis type (CMS/[facility]) (HCC) 04/08/2025 Patient Outreach [address] [address] Emiliana Lopez FNP Care Coordination ([facility] [place] telephone call outreach) 04/02/[address] [address] Emiliana Lopez FNP Medication Question 03/23/2025 Patient Outreach [address] [address] Emiliana Lopez FNP 03/19/2025 Patient Outreach [address] [address] Emiliana Lopez FNP Care Coordination ([facility] telephone call outreach) 2025 Patient Outreach [address] [address] Emiliana Lopez FNP 03/05/2025 Patient Outreach [facility] [address] [place] [phone] Emiliana Lopez FNP Care Management ([facility]- F/U call # 2) 02/25/2025 10:30 AM EDT Office Visit [address] [address] Emiliana Lopez FNP Type 2 diabetes mellitus with hyperglycemia, without long-term current use of insulin ([facility]) (Primary Dx); Encounter for diabetic foot exam ([facility]); Well adult health check; Anxiety; Psychosis, unspecified psychosis type ([facility]) 02/25/2025 Travel 02/24/2025 Telephone [facility] [address] [place] [phone] Carlos Eduardo Conde [place] CHART PREP 02/23/[address] [address] Emiliana Lopez FNP 02/23/[address] [address] [place] Emiliana, TEXTILE BAG SEWER 02/23/2025 Refill [facility] [address] [place] [phone] Hamida Malin, KAREEN Type 2 diabetes mellitus with hyperglycemia, without long-term current use of insulin (CMS/[facility]) 02/20/2025 Orders Only [facility] [address] [place] [address] [place] Emiliana, TEXTILE BAG SEWER 02/20/[address] [address] [place], Emiliana, TEXTILE BAG SEWER 02/19/[address] [address] [place], Emiliana, TEXTILE BAG SEWER Anxiety; Psychosis, unspecified psychosis type (CMS/HCC) 02/18/2025 Refill [facility] [address] [place] [phone] [place] Emiliana, TEXTILE BAG SEWER Anxiety; Psychosis, unspecified psychosis type (CMS/HCC) 02/18/2025 Refill [facility] [address] [place] [phone] Ruba Malin DO 02/05/2025 Patient Outreach [address] [address] [place] Meiliana, TEXTILE BAG SEWER Care Coordination ([facility] [place] telephone call ) 02/05/2025 Patient Outreach [address] [address] [place]oJackelinEmiliana, TEXTILE BAG SEWER 02/03/2025 Patient Outreach [address] [address] [place] Emiliana, TEXTILE BAG SEWER Care Management ([facility]- Follow up call # [phone]/LVM) 01/29/2025 Patient Outreach [address] [address] [place] Emiliana, TEXTILE BAG SEWER 01/26/2025 Travel from Last 3 Months Immunizations Immunization [...] Info) Description 04/20/2025 2:30 PM EST Telemedicine [facility] [address] [place] [address] Ting Lancaster, PharmD [address] [place] [address] Health Maintenance Due Date Last Done Comments Eye Exam 2010 Family Planning (PISQ) 2015 HPV Vaccines (1 - Male 3-dose series) 2015 Hepatitis B Vaccines (1 of 3 - 19+ 3-dose series) 2019 COVID-19 Vaccine (1 - season) 2025 Influenza Vaccine (#1) 2025 Diabetes: Hemoglobin A1C 04/28/2025 0818/2 025, 10/15/2024, 08/27/2024, Additional history exists Alcohol/Substance [...] Patients (6 to 49) Years Completed 10/15/2024 HIV Screening Completed 04/06/2025 Hepatitis C Screening Completed 04/06/2025 HIB Vaccines Aged Out No longer eligi [...] Procedure Name Priority Date/Time Associated Diagnosis Comments HIV 1/2 ANTIGEN/ANTIBODY, FOURTH GENERATION W/RFL Routine 04/06/2025 2:20 PM EDT Well adult health check HEPATITIS B SURFACE ANTIGEN, EIA Routine 04/06/2025 2:20 PM EDT Well adult health check HEPATITIS B SURFACE ANTIBODY, QUALITATIVE Routine 04/06/2025 2:20 PM EDT Well adult health check HEPATITIS B CORE AB TOTAL Routine 04/06/2025 2:20 PM EDT Well adult health check HEPATITIS C AB W/REFL TO HCV RNA, QN, PCR Routine 04/06/2025 2:20 PM EDT Well adult health check POCT GLUCOSE Routine 02/25/2025 10:44 AM EDT Type 2 diabetes mellitus with hyperglycemia, without long-term current use of insulin (CMS/HCC) VITAMIN B12/FOLATE, SERUM PANEL Routine 02/20/2025 1:33 [...] Recently Relevant to Health Maintenance Results * Hepatitis C Antibody with Reflex to HCV, RNA, Quantitative, Real-Time PCR (04/06/2025 2:20 PM EDT) Hepatitis C Antibody Nonreactive Nonreactive [facility] Comment:Antibodies to HCV no t detected; does not exclude early acuteHCV infection. Blood Venous blood specimen / Unknown 04/06/2025 2:20 PM EDT 04/06/2025 4:07 PM EDT us Emiliana Lopez [facility] LAB BLOOD ORDERABLES Final Res ult [facility] [address] [place] [address] [phone] * Hepatitis B surface antigen, EIA (04/06/2025 2:20 PM EDT) Hepatitis B Surface Ag Negative Negative [facility] Blood Venous blood specimen / Unknown 04/06/2025 2:20 PM EDT 04/06/2025 4:07 PM EDT [facility] LAB BLOOD ORDERABLES Final Res ult Performing Organization Address [facility] [address] [facility]/ZIP Co de Phone Number [facility] [address] [place] [address] [phone] * Hepatitis B Core Antibody, Total (04/06/2025 2:20 PM EDT) Hepatitis B Core Antibody Nonreactive Nonreactive [facility] Blood Venous blood specimen / Unknown 04/06/2025 2:20 PM EDT 04/06/2025 4:07 PM EDT [facility]OD ORDERAB[facility] Final Res ult Performing Organization Address [facility] [address] [facility] Co de Phone Number [facility] [address] [place] [address] [phone] * HIV-1/2 Antigen and Antibodies, Fourth Generation, with Reflexes (04/06/2025 2:20 PM EDT) HIV AB/AG Nonreactive Nonreactive [facility] Comment:HIV-1 p24 Ag and/or HIV-1/HIV-2 Ab not detected.A test result that is nonreactive does not exclude thepossibility of exposure to or infection with HIV-1 and/orHIV-2. Nonreactive results in this assay for individualswith prior exposure to HIV-1 and/or HIV-2 may be due toantigen and antibody levels that are below the limit ofdetection of this assay.The [employer] HIV Ag/Ab Combo assay result andsupplemental assay results should be interpreted inconjunction with the patient's clinical presentation,history and other laboratory results. If the results areinconsistent with clinical evidence, additional testing issuggested to confirm the result. Blood Venous blood specimen / Unknown 04/06/2025 2:20 PM EDT 04/06/2025 4:07 PM EDT [facility] LAB BLOOD ORDERABLES Final Res ult Performing Organization Address City/[facility] [address]/ZIP Co de Phone Number [facility] [address] [place] [phone] * Hepatitis B Surface Antibody, Qualitative (04/06/2025 2:20 PM EDT) [facility] ~Hepatitis B Surface Antibody REACTIVE Nonreactive [facility] Comment:REACTIVE: > 11.99 mI U/mL Blood Venous blood specimen / Unknown 04/06/2025 2:20 PM EDT 04/06/2025 4:07 PM EDT [facility] LAB BLOOD ORDERABLES Final Res ult Performing Organization Address [facility] Co de Phone Number [facility] [address] [place] [phone] * POCT Glucose (02/25/2025 10:44 AM EDT) [facility] Glucose Blood, POC 191 60 - 200 mg/dL QC Media Lot # [id number] Lot# Expiration Date [id number] Blood Capillary blood specimen / Unknown 02/25/2025 10:44 AM EDT Result [facility] POINT OF CARE TEST ENTER/EDIT ORDERABLES Final Result * Vitamin B12 (Cobalamin) and Folate Panel, Serum (02/20/2025 1:33 PM EDT) Vitamin B12 367 200 - 900 pg/mL [facility] Comment:NORMAL 200-900 PG/ML INDETERMINATE 160-199 PG/ML DEFICIENT < 160 PG/ML Folate 7.4 > or = 4.0 ng/mL [facility] Comment:Reference Values:> o r = 4.0 ng/mL< 4.0 ng/mL suggests folate deficiency Methotrexate, aminopterin and folinic acid(leucovorin) are chemotherapeutic agents whose molecularstructures are similar to folate; therefore, the Architectfolate assay cannot be used for patients using these drugs. 02/20/2025 1:33 PM EDT 02/20/2025 4:01 PM EDT us Emiliana Lopez [facility] LAB BLOOD ORDERABLES Final Res ult [facility] [address] [place] [address] [phone] * (ABNORMAL) Lipid Panel, Standard (02/20/2025 1:33 PM EDT) Triglycerides 343(H) <150 mg/dL [facility] Comment:Desirable Triglyceri de: less than 150 mg/dLBorderline High Triglyceride 150-199 mg/dLHigh Triglyceride: 200-499 mg/dLVery High Triglyceride: greater than or equal to 5OO mg/dL Cholesterol 129 <200 mg/dL [facility] Comment:Desirable Cholestero l: less than 200 mg/dLBorderline High Cholesterol: 200-239 mg/dLHigh Cholesterol: greater than 239 mg/dL LDL Cholesterol Calculated 35 <100 mg/dL [facility] Comment:Desirable LDL: less than 100 mg/dLNear Optimal/Above Optimal LDL: 110- 129 mg/dLBorderline High LDL: 130-159 mg/dLHigh LDL: 160-189 mg/dLVery High LDL: greater than or equal to 190 mg/dL HDL Cholesterol 26(L) >40 mg/dL [facility] Comment:Desirable HDL: great er than 40 mg/dL Note: This HDL assay may give artificially low results in patients with liver disease. 02/20/2025 1:33 PM EDT 02/20/2025 4:01 PM EDT Emiliana Utopia [facility] LAB BLOOD ORDERABLES Final Res ult Performing Organization Address [facility] [address] [facility]/ZIP Co de Phone Number [facility] [address] [place] [address] [phone] * (ABNORMAL) Basic Metabolic Panel (02/20/2025 1:33 PM EDT) Sodium 141 135 - 145 mmol/L [facility] Potassium 4.4 3.3 - 5.1 mmol/L [facility] Chloride 105 96 - 108 mmol/L [facility] Carbon Dioxide 27 22 - 29 mmol/L [facility] Anion Gap 13 12 - 20 [facility] Urea Nitrogen (BUN) 11 9 - 16 mg/dL [facility] Creatinine, Serum 0.75 0.5 - 1.4 mg/dL [facility] Estimated Glomerular Filt Rate >60 [facility] Comment:Chronic Kidney Disea se: Estimated GFR < 60 mL/min/1.73a9Icduri Kidney Disease: Estimated GFR < 15 mL/min/1.73m2 Glucose 177(H) 60 - 115 mg/dL [facility] Calcium 9.1 8.4 - 10.2 mg/dL [facility] 02/20/2025 1:33 PM EDT 02/20/2025 4:01 PM EDT [employer] [facility] LAB BLOOD ORDERABLES Final Res ult Performing Organization Address [facility]/ZIP Co de Phone Number [facility] [address] [place] [address] [phone] * (ABNORMAL) POCT A1c (01/26/2025 1:44 PM EDT) Hemoglobin A1C 9.1(A) 4.0 - 5.7 % QC Media Lot # [id number] Lot# Expiration Date [id number] Blood 01/26/2025 1:44 PM EDT Emiliana IRVIN POINT OF CARE TEST ENTER/EDIT ORDERABLES Final Result * (ABNORMAL) Albumin, Random Urine W/Creatinine (06/09/2024 1:27 PM EST) Creatinine, Urine 97.63 mg/dL [facility] Microalbumin Urine 40.0 mg/L H [facility] Microalbum Creatinine Ratio Ur 40.9(H) <30 ug/mg cr [facility] Comment:Albumin/Creatinine R atio Reference Ranges: Normal: < 30 ug/mg creatinine Microalbuminuria: 30 - 300 ug/mg creatinineClinical Albuminuria: > 300 ug/mg creatinine Urine (Urine, Random) 06/09/2024 1:27 PM EST 06/09/2024 5:29 PM EST Emiliana Lopez [employer] BAG SEWER LAB URINE ORDERABLES Final Res ult Performing Organization Address City/State/[facility] Co de Phone Number [facility] [address] [place] [phone] from Last 3 Months or Most Recently Relevant to Health Maintenance [place] [address] [address] [address] C3 Care Teams Guitar Maker Hand Relationship Specialty Start Date End Date Emiliana Lopez FNP [address] [place] [phone] PCP - General Family Medicine 06/06/24 Ting Lancaster, PharmD [address] [place] [address] [place] [address] Pharmacist Pharmacy 01/26/25 [facility] 11/10/24
== END 2025-04-16 14:32 | disposition home or self-care (01) ==
LOC: HO.HCS 13:57
PROVIDERS: PCP Nurse Practitioner Family
DX: R07.9 Chest pain, unspecified (principal)
CPT/HCPCS: 93010; 99203

== ENCOUNTER → 2025-04-16 13:56 | Outpatient (BNVA) | payer MEDICAID, SELFPAY | PROVIDERS: PCP Nurse Practitioner Family | DX: R07.9 Chest pain, unspecified (principal); E66.9 Obesity, unspecified; Z82.49 Family history of ischemic heart disease and other diseases of the circulatory system | CPT/HCPCS: 93005; 99212 ==